=== PATIENT | female | born 1955 | race Caucasian/White ===

== ENCOUNTER 2017-12-08 02:53 | Outpatient (CLI) | payer BC, SELFPAY ==
--- NOTE | 2017-12-08 17:42 | PFT_ITS ---
DATE OF SERVICE: December 08, 2017 REQUESTING PROVIDER: Geetha Bonilla M.D. Spirometry shows borderline mild obstructive airways disease with no significant bronchodilator response. This may represent a normal variant. Lung volumes show no evidence of restriction. Diffusion capacity normal. Airways resistance normal. IMPRESSION: Borderline mild obstructive airways disease with no significant bronchodilator response. This may represent a normal variant. Clinical correlation recommended. When this study was compared to previous ones from 05/07/05, 03/08/08, and , the patient has a total of 220 cc's drop in FVC and 390 cc's drop in FEV1. Spirometry was largely stable up until 2009 and there is a slight decline in both measurements from 2009 to now. Clinical correlation recommended. Please see scanned document for data. SEE SCANNED DOCUMENT IN THE EMR FOR DATA AND GRAPHS
== END 2017-12-08 03:13 ==
PROVIDERS: PCP Nurse Practitioner; Visit Provider Internal Medicine Pulmonary Disease
DX: J45.909 Unspecified asthma, uncomplicated (principal)
CPT/HCPCS: 94060; 94150; 94726; 94729

== ENCOUNTER 2017-12-08 14:47 | Outpatient (CLI) | payer BC, SELFPAY ==
[2017-12-08] MEDS: Inhaler, Assist Device 1 EACH MC (16:48)
[2017-12-08] MEDS: Albuterol HFA 18 GM 200 PUFF INH IH (16:48)
== END 2017-12-08 15:07 ==
PROVIDERS: PCP Nurse Practitioner; Visit Provider Internal Medicine Pulmonary Disease
DX: J45.909 Unspecified asthma, uncomplicated (principal)

== ENCOUNTER 2017-12-10 00:54 | Outpatient (CLI) | payer BC, SELFPAY ==
--- NOTE | 2017-12-10 15:16 | DI.CT_ITS ---
SYMPTOMS/DIAGNOSIS: ASTHMA, J45.909, PERSISTENT COUGH AND LLL LATE INSPIRATORY S[place] CT SCAN OF THE CHEST: High resolution CT scan of the chest and noncontrast CT scan of the chest was performed. Comparison is 02/05/16. Comparison chest x-ray is 07/29/17. On the routine CT scan of the chest, there are multi-focal infiltrates present including areas in the right upper lobe, left lingula and both the right and left lower lobes. These do not appear to have been present on the chest x-ray from 07/29/17. There is mild atherosclerosis of the thoracic aorta but no aneurysmal dilatation is seen. The heart size is within normal limits. No significant pericardial effusion is seen. There are a few small subcentimeter lymph nodes seen in the mediastinum. No significant axillary adenopathy is present. No pleural effusion or pneumothorax is identified. The upper abdominal images show no acute abnormality. High resolution CT scan shows no significant bronchiectatic changes. There are areas of ground glass opacity which may represent air trapping. Infectious or inflammatory process can not be excluded. The tracheobronchial tree is unremarkable. IMPRESSION: Multi-focal air space opacities. The findings raise the question of multi-focal inflammatory or infectious process. Multi-focal pneumonia should be considered. Please correlate clinically.
== END 2017-12-10 01:14 ==
PROVIDERS: PCP Nurse Practitioner
DX: R05 Cough (principal); J98.4 Other disorders of lung; R91.8 Other nonspecific abnormal finding of lung field; J45.909 Unspecified asthma, uncomplicated
CPT/HCPCS: 71250

== ENCOUNTER 2017-12-12 09:20 | Outpatient (CLI) | payer BC, SELFPAY ==
[2017-12-12 09:40] LABS: HCT 36.4 % (36.0-46.0); HGB 11.8 g/dL (12.0-15.5); Mean Corp. HGB Concentration 32.4 g/dL (32.0-36.0); Mean Corpuscular Hemoglobin 30.6 pg (27.0-33.0); Mean Corpuscular Volume 94.3 fL (80-95); Mean Platelet Volume 10.2 fL (8.0-11.0); Platelet Count 291 x1000/uL (130-400); RBC 3.86 m/cumm (4.00-5.20); RBC Distribution Width 13.5 % (11.7-14.6); White Blood Cell Count 6.66 k/cumm (4.4-10.8)
[2017-12-12 09:57] LABS: INR 1.1 (1.0-3.5); Prothrombin Time 10.3 sec (9.3-10.8)
[2017-12-12 16:30] LABS: Abs Immature Grans 0.01 k/cumm (0.0-0.09); Absolute Basophil Count 0.05 k/cumm (0.0-0.2); Absolute Eosinophil Count 0.13 k/cumm (0.0-0.7); Absolute Lymphocyte Count 1.58 k/cumm (1.2-3.4); Absolute Monocyte Count 0.61 k/cumm (0.11-0.7); Absolute Neutrophil Count 4.13 k/cumm (1.2-6.7); Basophils % 0.8; Immature Grans % 0.2; Lymphocytes % 24.3; Monocytes % 9.4; Neutrophils % 63.3
== END 2017-12-12 09:40 ==
PROVIDERS: PCP Nurse Practitioner; Visit Provider Internal Medicine
DX: J98.4 Other disorders of lung; R05 Cough; R91.8 Other nonspecific abnormal finding of lung field; R06.09 Other forms of dyspnea
CPT/HCPCS: 36415; 85027; 85007; 85610

== ENCOUNTER 2017-12-12 09:25 | Outpatient (CLI) | payer BC, SELFPAY | END 2017-12-12 09:45 | PROVIDERS: PCP Nurse Practitioner; Visit Provider Internal Medicine | DX: R93.89 Abnormal findings on diagnostic imaging of other specified body structures (principal) ==

== ENCOUNTER 2017-12-12 09:43 | Outpatient (CLI) | payer BC, SELFPAY | END 2017-12-12 10:03 | PROVIDERS: PCP Nurse Practitioner; Visit Provider Internal Medicine | DX: R93.89 Abnormal findings on diagnostic imaging of other specified body structures (principal); Z13.6 Encounter for screening for cardiovascular disorders | CPT/HCPCS: 93005; 93010 ==

== ENCOUNTER 2018-02-24 01:55 | Outpatient (CLI) | payer BC, SELFPAY ==
--- NOTE | 2018-02-24 14:48 | DI.CT_ITS ---
SYMPTOM/DIAGNOSIS: F/U ABNL CHEST XR, R93.[address]: Comparison is made with the prior CT examination of 12/10/17. The examination was carried out without contrast enhancement. There is significant interval clearing of the lungs when compared with the prior study with only small regions of residual air space density noted bilaterally. The findings are certainly consistent with a resolving acute pneumonitis. There is no apparent mass. There is no pleural effusion. The cardiovascular structures appear intact on this noncontrast enhanced study. SUMMARY: Significant interval improvement with substantial clearing of the densities noted on the previous examination. Follow up evaluation of this patient with additional CT examinations could be considered if there is any further clinical question.
== END 2018-02-24 02:15 ==
PROVIDERS: PCP Nurse Practitioner; Visit Provider Internal Medicine
DX: R93.89 Abnormal findings on diagnostic imaging of other specified body structures (principal); J18.9 Pneumonia, unspecified organism
CPT/HCPCS: 71250

== ENCOUNTER 2018-06-10 03:39 | Outpatient (CLI) | payer BC, SELFPAY ==
--- NOTE | 2018-06-10 15:15 | DI.CT_ITS ---
SYMPTOM/DIAGNOSIS: R93.89, ABNL FINDINGS ON XRAY, SARCOIDOSIS CHEST CT: The study was carried out without contrast enhancement. There are regions of increased density in the lower lobes bilaterally and in the lingula and right middle lobe. A nodular density is noted adjacent to the pleural surface posteriorly in the right lower lobe and measures approximately 11 mm. in diameter. No other focal area of nodularity or evidence of a mass is seen. There is on this noncontrast enhanced examination, no evidence of adenopathy. There is no pleural effusion. The heart is not enlarged. There is no pericardial effusion. SUMMARY: When compared with the previous examination of 02/24/18, interval deterioration is demonstrated with note made of regions of atelectasis and/or infiltration in the lungs. There is a posterior pleural based area of nodularity in the right lower lobe measuring up to 11 mm. in diameter. The findings today could be on the basis of an acute pneumonitis. Follow up evaluation with a repeat chest CT when clinically appropriate or in 6-8 weeks is suggested for further review.
== END 2018-06-10 03:59 ==
PROVIDERS: PCP Nurse Practitioner; Visit Provider Internal Medicine
DX: R91.8 Other nonspecific abnormal finding of lung field (principal); R91.1 Solitary pulmonary nodule; D86.9 Sarcoidosis, unspecified
CPT/HCPCS: 71250

== ENCOUNTER 2018-06-23 00:27 | Outpatient (CLI) | payer BC, SELFPAY ==
--- NOTE | 2018-06-23 11:30 | DI.MAMMO_ITS ---
SYMPTOMS/DIAGNOSIS: SCREENING, Z12.31 MAMMOGRAMS: Mammograms were interpreted according to the usual protocol including computer analysis with CAD system, tomosynthesis and C view imaging. The breast tissue is of moderate radiodensity. There is no evidence of a mass. There are no suspicious calcifications and there has been no significant interval change when compared with prior images. SUMMARY: No evidence of malignancy, category 1. Yearly screening mammography is recommended. Breast density category B. SA ASSESSMENT OF FINDINGS: Negative. Category 1. Patient will receive a letter notifying them of these results. BI-RADS category B. There are scattered areas of fibroglandular density.
== END 2018-06-23 00:47 ==
PROVIDERS: PCP Nurse Practitioner; Visit Provider Nurse Practitioner
DX: Z12.31 Encounter for screening mammogram for malignant neoplasm of breast (principal)
CPT/HCPCS: 77063; 77067

== ENCOUNTER 2018-08-27 09:50 | Outpatient (CLI) | payer BC, SELFPAY ==
--- NOTE | 2018-08-27 09:47 | DI.RAD_ITS ---
SYMPTOM/DIAGNOSIS: RIGHT HIP PAIN RIGHT HIP: No bony or joint abnormality involving the right hip is demonstrated.
== END 2018-08-27 10:10 ==
PROVIDERS: PCP Nurse Practitioner; Visit Provider Physician Assistant
DX: M25.551 Pain in right hip (principal)
CPT/HCPCS: 73502

== ENCOUNTER 2018-09-01 01:22 | Outpatient (CLI) | payer BC, SELFPAY ==
--- NOTE | 2018-09-01 13:00 | DI.CT_ITS ---
SYMPTOMS/DIAGNOSIS: SARCOIDOSIS, D86.[address]: Comparison is made with June,. No enlarged hilar or mediastinal lymph nodes are seen. There are no pleural or pericardial effusions. There has been interval clearing of previously noted bilateral upper and lower lobe infiltrates. A nodular density seen at the left lung base is no longer present. There is minimal linear basilar scarring or atelectasis. IMPRESSION: Interval resolution of bilateral pulmonary infiltrates and area of nodularity in the left lung base.
== END 2018-09-01 01:42 ==
PROVIDERS: PCP Nurse Practitioner; Visit Provider Internal Medicine
DX: D86.9 Sarcoidosis, unspecified (principal); R91.8 Other nonspecific abnormal finding of lung field
CPT/HCPCS: 71250

== ENCOUNTER 2019-01-01 07:34 | Outpatient (CLI) | payer BC, SELFPAY ==
[2019-01-01 08:30] LABS: Abs Immature Grans 0.01 k/cumm (0.0-0.09); Absolute Basophil Count 0.03 k/cumm (0.0-0.2); Absolute Eosinophil Count 0.11 k/cumm (0.0-0.7); Absolute Lymphocyte Count 1.65 k/cumm (1.2-3.4); Absolute Monocyte Count 0.76 k/cumm (0.11-0.7); Absolute Neutrophil Count 4.08 k/cumm (1.2-6.7); Basophils % 0.5; Eosinophils % 1.7; HCT 36.7 % (36.0-46.0); HGB 12.2 g/dL (12.0-15.5); Immature Grans % 0.2; Lymphocytes % 24.8; Mean Corp. HGB Concentration 33.2 g/dL (32.0-36.0); Mean Corpuscular Hemoglobin 30.3 pg (27.0-33.0); Mean Corpuscular Volume 91.3 fL (80-95); Mean Platelet Volume 9.4 fL (8.0-11.0); Monocytes % 11.4; Neutrophils % 61.4; Platelet Count 318 x1000/uL (130-400); RBC 4.02 m/cumm (4.00-5.20); RBC Distribution Width 12.6 % (11.7-14.6); White Blood Cell Count 6.64 k/cumm (4.4-10.8)
[2019-01-01 09:07] LABS: Calculated LDL 83 mg/dL; Cholesterol 148 mg/dL (50-200); HDL Cholesterol 53 mg/dL (40-60); Triglyceride 60 mg/dL (30-150)
[2019-01-01 09:16] LABS: ALT 64 U/L (14-59); AST 46 U/L (15-37); Albumin 3.7 g/dL (3.4-5.0); Alkaline Phosphatase 429 U/L (46-116); Anion Gap 6.7 mmol/L (3-11); BUN 14 mg/dL (7-18); CO2 30.3 mmol/L (21.0-32.0); CREATININE 0.94 mg/dL (0.55-1.02); Calcium 9.4 mg/dL (8.5-10.1); Chloride 97 mmol/L (98-107); Glucose 91 mg/dL (70-100); Potassium 4.3 mmol/L (3.5-5.1); Sodium 134 mmol/L (136-145); Total Protein 6.6 g/dL (6.4-8.2)
[2019-01-01 09:31] LABS: Bilirubin, Total 0.6 mg/dL (0.2-1.0)
[2019-01-02 15:35] LABS: Lamotrigine 3.3 mcg/mL (2.5 - 15.0)
== END 2019-01-01 07:54 ==
PROVIDERS: PCP Nurse Practitioner; Visit Provider Nurse Practitioner Adult Health
DX: G40.109 Localization-related (focal) (partial) symptomatic epilepsy and epileptic syndromes with simple partial seizures, not intractable, without status epilepticus (principal); I10 Essential (primary) hypertension; Z79.899 Other long term (current) drug therapy; Z51.81 Encounter for therapeutic drug level monitoring; E78.5 Hyperlipidemia, unspecified; D86.9 Sarcoidosis, unspecified; J45.909 Unspecified asthma, uncomplicated
CPT/HCPCS: 36415; 80053; 80061; 80175; 85025

== ENCOUNTER 2019-02-01 02:20 | Outpatient (CLI) | payer BC, SELFPAY ==
--- NOTE | 2019-02-01 06:38 | DI.US_ITS ---
EXAM: US ABDOMEN CLINICAL HISTORY: elevated LFT, history of gallbladder stones/sludge, R94.5 TECHNIQUE: Ultrasound abdomen performed using standard protocol. COMPARISON: ABDOMEN AND RENAL ULTRASOUND from 08/22/2017 FINDINGS: LIVER: Normal size and echogenicity. No focal liver lesions are seen. GALLBLADDER: Multiple tiny gallstones versus sludge are again demonstrated in the gallbladder. No ev idence of wall thickening. No pericholecystic fluid identified. KIDNEYS: Kidneys are symmetric in size. No evidence of renal calculi. No evidence of hydronephrosis. No renal mass or cyst identified. BILIARY SYSTEM: No intrahepatic or extrahepatic biliary ductal dilation. PARADA'S SIGN: Negative. PANCREAS: Normal where visualized. SPLEEN: Not enlarged. ABDOMINAL AORTA AND IVC: Visualized portions normal caliber. ASCITES: None seen. IMPRESSION: No change in appearance of tiny stones versus sludge. No evidence of biliary dilatation or acute cho lecystitis..
== END 2019-02-01 02:40 ==
PROVIDERS: PCP Nurse Practitioner; Visit Provider Nurse Practitioner
DX: R94.5 Abnormal results of liver function studies (principal); R74.8 Abnormal levels of other serum enzymes; K83.8 Other specified diseases of biliary tract
CPT/HCPCS: 76700

== ENCOUNTER 2019-02-03 00:49 | Outpatient (CLI) | payer BC, SELFPAY ==
[2019-02-03 11:34] LABS: PTT Activated 28.1 sec (21.0-31.4); Prothrombin Time 10.4 sec (9.3-11.0)
[2019-02-03 11:41] LABS: ALT 36 U/L (14-59); AST 29 U/L (15-37); Albumin 3.9 g/dL (3.4-5.0); Alkaline Phosphatase 199 U/L (46-116); Bilirubin, Direct 0.11 mg/dL (0.00-0.20); Bilirubin, Total 0.5 mg/dL (0.2-1.0); Total Protein 6.5 g/dL (6.4-8.2)
[2019-02-03 11:53] LABS: GGT 118 U/L (5-55)
== END 2019-02-03 01:09 ==
PROVIDERS: PCP Nurse Practitioner; Visit Provider Nurse Practitioner
DX: R94.5 Abnormal results of liver function studies (principal); E78.5 Hyperlipidemia, unspecified; R74.8 Abnormal levels of other serum enzymes; D86.9 Sarcoidosis, unspecified; I10 Essential (primary) hypertension
CPT/HCPCS: 80076; 82977; 85610; 85730

== ENCOUNTER 2020-02-17 04:47 | Outpatient (CLI) | payer BC, SELFPAY ==
[2020-02-19 10:03] LABS: COVID-19 RT-PCR Result NEGATIVE (Negative)
== END 2020-02-17 05:07 ==
PROVIDERS: PCP Nurse Practitioner; Visit Provider Nurse Practitioner
DX: Z20.828 Contact with and (suspected) exposure to other viral communicable diseases (principal)
CPT/HCPCS: U0003

== ENCOUNTER 2020-05-30 03:47 | Outpatient (CLI) | payer BC, SELFPAY ==
[2020-05-30 08:53] LABS: ALT 38 U/L (14-59); AST 26 U/L (15-37); Alkaline Phosphatase 127 U/L (46-116); Bilirubin, Total 0.5 mg/dL (0.2-1.0); Calculated LDL 99 mg/dL (<100); Cholesterol 179 mg/dL (<200); GGT 76 U/L (5-55); HDL Cholesterol 66 mg/dL (40-60); Triglyceride 70 mg/dL (<150)
[2020-05-30 09:08] LABS: Bilirubin, Direct 0.2 mg/dL (0.0-0.2)
== END 2020-05-30 03:48 | disposition home or self-care (01) ==
LOC: LBO 03:47
PROVIDERS: PCP Nurse Practitioner; Visit Provider Nurse Practitioner
DX: R74.8 Abnormal levels of other serum enzymes (principal); R94.5 Abnormal results of liver function studies; Z13.220 Encounter for screening for lipoid disorders
CPT/HCPCS: 36415; 80061; 80076; 82977

== ENCOUNTER 2020-06-26 01:56 | Outpatient (CLI) | payer BC, SELFPAY ==
--- NOTE | 2020-06-26 06:45 | DI.MAMMO_ITS ---
EXAM: MG MAMMO SCREENING CLINICAL HISTORY: screening,Z12.39. TECHNIQUE: Bilateral full field digital CC and MLO mammographic images were obtained with 3D tomosyn thesis and utilizing computer aided detection (CAD). COMPARISON: Prior mammograms dating back to 2012, the most recent being June 2018. FINDINGS: No new significant radiograph findings in left breast. In the right breast there is an area of asymmetric density towards the upper outer quadrant located 8 cm in from the nipple and measuring approximately a 10 x 8 millimeters. This appears somewhat less well-defined than on previous studies. Spot compression view and ultrasound recommended. More poste riorly there is a benign-appearing lymph node in the right breast which is unchanged. There are no malignant-appearing microcalcification groups in this region or elsewhere in either [address]. There is no significant architectural distortion nor skin thickening-retraction. IMPRESSION: No radiographic evidence of malignancy in left breast. Right breast findings described above. Spot compression view and ultrasound recommended BI-RADS Category 0 - Assessment Incomplete: Need additional imaging evaluation Breast Density - Category B - Scattered areas of fibroglandular density Breast density Category C or D implies that the patient has dense breast tissue. Dense breast tissue can make it harder to find cancer on a mammogram. Dense breast tissue is also associated with an incr eased risk of breast cancer. This information about the result of the mammogram report was provided to the patient to raise their awareness. Use this report when you speak with the patient about their risks for breast cancer, which includes their family history. At that time, you may recommend additional screening tests (Ultrasoun d or MRI) as these tests may add significant information. A negative radiographic report should not delay biopsy if a dominant or clinically suspicious mass is present. Up to ten percent of cancers are not identified on mammography. A negative report may reinforce clinical impression. Adenosis and dense breasts may obscure an underlying neoplasm. False positive reports average 6 to 10%. Patient will receive a letter notifying them of these results.
== END 2020-06-26 02:16 ==
PROVIDERS: PCP Nurse Practitioner; Visit Provider Nurse Practitioner
DX: Z12.31 Encounter for screening mammogram for malignant neoplasm of breast (principal); R92.8 Other abnormal and inconclusive findings on diagnostic imaging of breast
CPT/HCPCS: 77063; 77067

== ENCOUNTER 2020-06-29 02:05 | Outpatient (CLI) | payer BC, SELFPAY ==
--- NOTE | 2020-06-29 | DI.MAMMO_ITS ---
EXAM: MG MAMMO SCREEN CALL BACK UNI CLINICAL HISTORY: F/U ABNL MAMMO, ASYMMETRIC DENSITY RT. TECHNIQUE: Unilateral spot mammographic images were obtained with 3D tomosynthesis and utilizing [employer] puter aided detection (CAD). . Breast Ultrasound was also performed. COMPARISON: Prior mammograms were reviewed. This additional imaging was performed due to findings described on the recent screening mammogram of 06/26/2020. FINDINGS: Additional mammographic views performed today do not dissipate this finding. However, renders this f inding more similar in appearance to prior mammograms. Ultrasound performed today following this mammogram reveals a 10 o'clock position finding which corre sponds to this mammogram finding.. This has benign appearance on ultrasound. Please see separate ultrasound report IMPRESSION: Benign-appearing findings as above. Please see separate ultrasound report. Appropriate follow-up is repeat right breast mammogram and ultrasound in 6 months.. Findings and recommendations were discussed by myself with the patient today. BI-RADS Category 3 - 6 month - Probably Benign Finding: Recommend follow-up mammography in 6 months Breast Density - Category B - Scattered areas of fibroglandular density Breast density Category C or D implies that the patient has dense breast tissue. Dense breast tissue can make it harder to find cancer on a mammogram. Dense breast tissue is also associated with an incr eased risk of breast cancer. This information about the result of the mammogram report was provided to the patient to raise their awareness. Use this report when you speak with the patient about their risks for breast cancer, which includes their family history. At that time, you may recommend additional screening tests (Ultrasoun d or MRI) as these tests may add significant information. A negative radiographic report should not delay biopsy if a dominant or clinically suspicious mass is present. Up to ten percent of cancers are not identified on mammography. A negative report may reinforce clinical impression. Adenosis and dense breasts may obscure an underlying neoplasm. False positive reports average 6 to 10%. Patient will receive a letter notifying them of these results.
--- NOTE | 2020-06-29 | DI.US_ITS ---
EXAM: US BREAST RT COMPLETE CLINICAL HISTORY: F/U ABNL MAMMO AND SPOT, RT ASYMMETRIC DENSITY. TECHNIQUE: Complete ultrasound of the right breast was performed incluing all 4 quadrants, the retro areolar region, and the ipsilateral axilla. COMPARISON: Today's diagnostic mammogram as well as prior mammograms reviewed FINDINGS: There is a solitary finding which is at the 10 o'clock position. This corresponds to the finding on the mammogram. It is a well-defined wider than taller 9 x 4 millimeter nodule with neutral and sligh tly increased through transmission. No worrisome decreased through transmission. Possibly lymph nod e versus fibrocystic nodule. There are no other focal findings in all 4 quadrants nor in the immediate retroareolar region. Benig n-appearing lymph nodes are noted in the ipsilateral axilla. IMPRESSION: Benign-appearing 10 o'clock position 9 x 4 millimeter nodule which corresponds to the finding on the mammogram. Appropriate follow-up is repeat right breast mammogram and ultrasound in 6 months. Findings and recommendations were discussed by myself with the patient today. BI-RADS Category 3 - 6 month - Probably Benign Finding: Recommend follow-up mammography in 6 months Breast Density - Category B - Scattered areas of fibroglandular density Breast density Category C or D implies that the patient has dense breast tissue. Dense breast tissue can make it harder to find cancer on a mammogram. Dense breast tissue is also associated with an incr eased risk of breast cancer. This information about the result of the mammogram report was provided to the patient to raise their awareness. Use this report when you speak with the patient about their risks for breast cancer, which includes their family history. At that time, you may recommend additional screening tests (Ultrasoun d or MRI) as these tests may add significant information. A negative radiographic report should not delay biopsy if a dominant or clinically suspicious mass is present. Up to ten percent of cancers are not identified on mammography. A negative report may reinforce clinical impression. Adenosis and dense breasts may obscure an underlying neoplasm. False positive reports average 6 to 10%. Patient will receive a letter notifying them of these results.
== END 2020-06-29 02:25 ==
PROVIDERS: PCP Nurse Practitioner; Visit Provider Nurse Practitioner
DX: Z12.31 Encounter for screening mammogram for malignant neoplasm of breast (principal); R92.8 Other abnormal and inconclusive findings on diagnostic imaging of breast; N60.81 Other benign mammary dysplasias of right breast
CPT/HCPCS: 76642; 77063; 77067

== ENCOUNTER 2020-11-01 01:14 | Outpatient (CLI) | payer BC, SELFPAY ==
--- NOTE | 2020-11-01 08:14 | DI.RAD_ITS ---
Exam(s) XR KNEE LT 3V AP,LAT,SILVESTRE EXAM: XR KNEE LT 3V AP,LAT,SILVESTRE CLINICAL HISTORY: left knee pain, M25.562. TECHNIQUE: 2D digital imaging was performed. COMPARISON: CR KNEES BILAT AP STANDING LATS from 05/02/2015 FINDINGS: No evidence of acute fracture but there is significant medial subluxation of the femoral condyles rel ative to the tibial plateau, with approximately 1 cm offset. There is minimal if any significant mark rowing of the medial lateral compartments. There is severe advanced narrowing of the patellofemoral compartment. No evidence of tibial plateau nor femoral condyle fractures. IMPRESSION: Advanced degenerative narrowing of the patellofemoral compartment ([id number]) Medial subluxation of the femoral condyles relative to the tibial plateau. Mild degenerative changes in the medial lateral compartments. DATA REPOSITORY: RADIATION DOSE DELIVERED:
== END 2020-11-01 01:34 ==
PROVIDERS: PCP Nurse Practitioner; Visit Provider Nurse Practitioner Family
DX: M25.562 Pain in left knee (principal); M17.12 Unilateral primary osteoarthritis, left knee; S83.132A Medial subluxation of proximal end of tibia, left knee, initial encounter
CPT/HCPCS: 73562

== ENCOUNTER 2021-01-02 00:43 | Outpatient (CLI) | payer BC, SELFPAY ==
--- NOTE | 2021-01-02 07:15 | DI.MAMMO_ITS ---
Exam(s) MAMMO DIAGNOSTIC UNI EXAM: MAMMO DIAGNOSTIC UNI CLINICAL HISTORY: 6 mos f/u right,R92.8. COMPARISON: 2012 through 26 June 2020 TECHNIQUE: Craniocaudal and mediolateral oblique Full Field Digital Mammography views of the right b reast with Computer Aided Diagnosis followed by Tomosynthesis FINDINGS: Mammography/Tomosynthesis: Masses/Architectural Distortion: There has been no change in the area of nodularity in the upper oute r quadrant. No suspicious features.. Microcalcifications: No suspicious pleomorphic-type are seen. Skin Thickening/Nipple Retraction: None. IMPRESSION: 1. No evidence of malignancy is noted. 2. Unless there is more urgent need, follow-up screening mammography is recommended in 6 months. BI-RADS Category 2 - Benign Findings Breast Density - Category B - Scattered areas of fibroglandular density A negative radiographic report should not delay biopsy if a dominant or clinically suspicious mass is present. Up to ten percent of cancers are not identified on mammography. A negative report may reinforce clinical impression. Adenosis and dense breasts may obscure an underlying neoplasm. False positive reports average 6 to 10%. Patient will receive a letter notifying them of these results.
== END 2021-01-02 01:03 ==
PROVIDERS: PCP Nurse Practitioner; Visit Provider Nurse Practitioner
DX: Z12.31 Encounter for screening mammogram for malignant neoplasm of breast (principal); R92.8 Other abnormal and inconclusive findings on diagnostic imaging of breast; N64.89 Other specified disorders of breast
CPT/HCPCS: 77061; 77065; G0279

== ENCOUNTER 2021-02-16 09:23 | Outpatient (CLI) | payer BC, SELFPAY ==
--- NOTE | 2021-02-16 08:00 | DI.RAD_ITS ---
Exam(s) XR STANDING ALIGNMENT EXAM: XR STANDING ALIGNMENT CLINICAL HISTORY: L TKA planning. TECHNIQUE: 2D digital imaging was performed. COMPARISON: CR XR KNEE LT 3V AP,LAT,SILVESTRE from 11/01/2020 CR XR KNEE LT 3V AP,LAT,SILVESTRE from 11/01/2020 FINDINGS: BONES: The hips are well maintained. There are stable degenerative changes in the left knee with jostin nt space narrowing and periarticular spurring. The patient has a right total knee replacement. The ankles are well maintained. There is no significant leg length discrepancy. SOFT TISSUE: Normal. IMPRESSION: 1. Osteoarthritis of the left knee. 2. Right TKR. DATA REPOSITORY: RADIATION DOSE DELIVERED:
== END 2021-02-16 09:24 | disposition home or self-care (01) ==
LOC: DIORS 09:23
PROVIDERS: PCP Nurse Practitioner; Referring Provider Nurse Practitioner; Visit Provider Physician Assistant
DX: M17.12 Unilateral primary osteoarthritis, left knee (principal)
CPT/HCPCS: 77073

== ENCOUNTER 2021-02-26 03:13 | Outpatient (CLI) | payer BC, SELFPAY ==
[2021-02-26 09:12] LABS: HCT 36.9 % (36.0-46.0); HGB 11.8 g/dL (11.2-15.7); MCH 30.7 pg (27.0-33.0); MCV 96.1 fL (80-95); MPV 9.4 fL (8.0-11.0); Platelet Count 250 10^3/uL (130-400); RBC 3.84 10^6/uL (3.93-5.22); RDW 12.1 % (11.7-14.6); RDW-SD 42.7 fL; WBC 7.21 10^3/uL (4.4-10.8)
[2021-02-26 10:22] LABS: Anion Gap 6.5 mmol/L (3-11); BUN 31 mg/dL (7-18); CO2 30.5 mmol/L (21.0-32.0); Calcium 9.2 mg/dL (8.5-10.1); Chloride 100 mmol/L (98-107); Estimated GFR 55.64 (mL/min/1.73m2); Glucose 80 mg/dL (74-106); Potassium 4.5 mmol/L (3.5-5.1); Sodium 137 mmol/L (136-145)
[2021-02-26 10:32] LABS: Source Nasal/Nares
[2021-02-26 12:53] LABS: COVID-19 PCR Negative (Negative)
== END 2021-02-26 03:14 | disposition home or self-care (01) ==
LOC: LBO 03:14
PROVIDERS: PCP Nurse Practitioner; Visit Provider Student in an Organized Health Care Education/Training Program
DX: M25.562 Pain in left knee (principal); M17.12 Unilateral primary osteoarthritis, left knee; Z20.822 Contact with and (suspected) exposure to COVID-19; Z01.818 Encounter for other preprocedural examination; Z01.812 Encounter for preprocedural laboratory examination
CPT/HCPCS: 36415; 80048; 85027; 87635

== ENCOUNTER 2021-02-28 07:20 | Day surgery (SDC) | payer BC, SELFPAY ==
[2021-02-22 16:00] VITALS: BP 102/53; PULSE 70
[2021-02-28] VITALS (17 sets, daily range): BP systolic 78–138; BP diastolic 32–72; PULSE 59–77; RESP 13–16; TEMP 36–36.8; O2SAT 92–99; BMI 24.3
--- NOTE | 2021-02-28 07:30 | W.PM.DS.N ---
Documented by User: Sheila Doherty 02/28/21 07:42 DS: Diagnosis Discharge Diagnosis (1) Primary osteoarthritis of left knee: Status: Acute Discharge Plan Disposition Patient Disposition: HOME Condition: Good Discharge Details Reason For Visit: Left knee DJD Attending Provider: Tobias Williamson Primary Care Provider: Anan Shaffer Home Meds and New Rx's Prescriptions: New acetaminophen 500 mg tablet 1,000 mg PO Q8H PRN Qty: 90 RF: 0 aspirin 81 mg tablet,delayed release (DR/EC) 81 mg PO BID 30 Days Qty: 60 RF: 0 celecoxib [Celebrex] 200 mg capsule 200 mg PO BID Qty: 30 RF: 0 docusate sodium [Colace] 100 mg capsule 100 mg PO BID Qty: 30 RF: 0 pantoprazole 40 mg tablet,delayed release (DR/EC) 40 mg PO DAILY 30 Days Qty: 30 RF: 0 gabapentin 300 mg capsule 300 mg PO QHS Qty: 14 RF: 0 oxycodone 5 mg tablet 5 mg PO Q4H PRN (Reason: severe post-operative pain) Qty: 18 RF: 0 Continued albuterol sulfate [ProAir HFA] 90 mcg/actuation HFA aerosol inhaler 2 puff Inhalation Q4H PRN Qty: 54 RF: 3 fluticasone propionate [Flonase Allergy Relief] 50 mcg/actuation spray,suspension 2 spray NS DAILY Qty: 54.6 RF: 3 multivitamin [Daily Multi-Vitamin] 1 EACH tablet 1 ea PO DAILY RF: 0 calcium carbonate-vitamin D3 [Calcium 600 + D(3)] 1 EACH tablet 1 ea PO DAILY RF: 0 diphenhydramine HCl [Benadryl] 25 MG capsule 25 mg PO HS PRNQty: 90 RF: 3 fluoxetine 20 mg capsule 20 mg PO DAILY Qty: 90 RF: 3 fluticasone propion-salmeterol [Advair Diskus] 500-50 mcg/dose blister with device 1 inh Inhalation BID Qty: 3 RF: 3 losartan 50 mg tablet 50 mg PO DAILY Qty: 90 RF: 3 omeprazole 20 mg capsule,delayed release(DR/EC) 20 mg PO DAILY Qty: 90 RF: 3 lamotrigine 150 MG tablet 150 mg PO HS RF: 0 lamotrigine [Lamictal] 100 MG tablet 100 mg PO .QAM RF: 0 Discontinued naproxen sodium 220 mg capsule 220 mg PO Q8H PRNRF: 0 Discharge Instructions Additional Instructions: Total Knee Discharge Instructions Activity: The most important activity is to walk. You should try to take short walks a few times a day. It is important that when resting you work on keeping the knee straight. Avoid putting a pillow behind the knee as this will encourage flexion. Work on range of motion exercises as provided by Physical Therapy. If you have the [employer] bike coming, this will be your primary tool for exercise after the knee replacement. You should use it and follow the directions for the knee. Utilize the other exercises sparingly based on your symptoms. - Start outpatient physical therapy within 2 weeks. - You should wear the JONA hose on both legs for 2 weeks. You may remove these at night. You may also use any compression sock in place of the JONA hose. - Utilize [employer] to review exercises, see videos on exercises and obtain basic information pertaining to your surgery and your recovery. Dressing: Remove the Luiz wrap by 2 days after your surgery and put on the JONA stocking given to you from the hospital. Keep the surgical dressing (underneath the LUIZ wrap) in place for at least one week. After the first week it may be removed and replaced with light gauze and tape or nothing. The wound and dressing may get wet after 3 days but avoid soaking the dressing or otherwise it will need to be changed. Many people prefer covering the dressing with cling wrap (saran wrap) to minimize it from getting soaked. If it gets wet, just pat dry. If it starts to peel off then it will need to be changed. Medications: - You should take Tylenol and anti-inflammatory Celebrex as your primary pain control medications. If the Celebrex is too expensive or not covered, please call the office for another alternative (Advil/Ibuprofen or Naproxen/Aleve) - You have been prescribed a stronger pain medication Oxycodone for breakthrough pain, take as needed as prescribed. - You have also been prescribed a stomach acid reduction agent Pantoprozole to help reduce stomach acid and reflux. - You have been prescribed Gabapentin to take at night for restlessness and nerve pain. - You will be taking Aspirin 81mg twice a day for DVT prevention unless instructed otherwise. - If you have constipation you should take Colace (which has been prescribed) or Miralax (which you may purchase [id number]). It takes most people 3-4 days to have a bowel movement. Follow-up: 2 weeks If you have any acute concerns or questions, please do not hesitate to contact the office at [phone]. You may contact Dr. Williamson with any questions after hours through the hospital at [phone] or on his cell phone at [phone]. Equipment/Supplies: Walker Activity:: Activity as Tolerated Remove Dressings/Wound Care:: Do Not Remove Shower/Bathe:: Cover Diet:: As Tolerated Discharge Orders Discharge Orders: Discharge Order (Routine); Ordered 02/28/21 Ordered By: Tobias Williamson DS: Data Vitals/I&O Vitals and I&O: Intake & Output 02/27/21 02/27/21 02/28/21 11:59 23:59 11:59 Weight 70.307 kg 70.307 kg PFSH All Active Problems Insomnia (Chronic) Hypertension (Chronic) Asthma (Chronic) GERD (gastroesophageal reflux disease) (Chronic) Hyperlipidemia (Chronic) Seizure disorder (Chronic) a. 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 seizures are mostly visual or auditory in nature Depression (Chronic) Allergic rhinitis (Acute) Epigastric pain (Acute 08/13/17) Headache (Acute 01/17/12) Sarcoidosis (Acute) 02/27/18 [facility] Pulm 10/08/19 Acapella Cough Assist Device use several times a day. [place] Ganglion cyst of finger (Acute) drained by [facility] 11/17/18 Left middle finger RH Elevated LFTs (Acute) Elevated alkaline phosphatase level (Acute) Osteopenia (Acute) Low vitamin D level (Acute) Petechiae (Acute) Cough (Acute) SOB (shortness of breath) (Acute) Fatigue (Acute) Wheeze (Acute) Screening for cholesterol level (Acute) Trigger middle finger of right hand (Acute) Injection: 10/13/20 Primary osteoarthritis of left knee (Acute) Injected: 11/27/2020 Medical History Abnormally prolonged clotting time Per [facility] neuro note. see records History of gastroscopy Trochanteric bursitis, right hip Injected: 05/06/2017, 08/27/2018 Surgical History Artificial knee joint present (04/25/14) S/P Right TKA DOS: 04/25/14 Dr. Fitzgerald Colonoscopy - IV Sedation (10/09/16) Replacement of total knee joint (04/25/14) R knee Dr Fitzgerald S/P excision of ganglion cyst (03/2019) L [facility] Dr Collazo S/P hysterectomy (06/07/96) ovaries spared S/P right knee surgery (03/09/72) Status post shoulder surgery (05/15/06) right Family History Mother COPD (chronic obstructive pulmonary disease) smoker Hyperlipidemia Hypertension Mental illness in member of household Father , 72 Heart disease CKD (chronic kidney disease) stage V requiring chronic dialysis Stroke X2 Smoked 2 ppd Carotid stenosis Sister Mental illness in member of household Social History Smoking/Tobacco Use Status: Never Smoking risk assessment performed?: Yes Alcohol Intake: former Year quit: 2017 Drug use: Never Substance use type: does not use Household members: none Housing: house Number of Children: 0 Communication Needs: None current occupation: [employer] reading Pets and animals: Yes Pets and animals: cat(s) and horse(s) Current gender identity: female What type of physical activity do you participate in: walking Duration: 30-45 minutes/day Frequency: 5-6 times per week Seatbelt use: always 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 Documented by User: Tobias Williamson MD 02/28/21 13:20 Date of service: 02/28/21 Time of Service: 13:19 Discharge Plan Disposition Patient Disposition: HOME Condition: Good Discharge Details Reason For Visit: Left knee DJD Attending Provider: Tobias Williamson Primary Care Provider: Anna Shaffer Home Meds and New Rx's Prescriptions: New acetaminophen 500 mg tablet 1,000 mg PO Q8H PRN Qty: 90 RF: 0 aspirin 81 mg tablet,delayed release (DR/EC) 81 mg PO BID 30 Days Qty: 60 RF: 0 celecoxib [Celebrex] 200 mg capsule 200 mg PO BID Qty: 30 RF: 0 docusate sodium [Colace] 100 mg capsule 100 mg PO BID Qty: 30 RF: 0 pantoprazole 40 mg tablet,delayed release (DR/EC) 40 mg PO DAILY 30 Days Qty: 30 RF: 0 gabapentin 300 mg capsule 300 mg PO QHS Qty: 14 RF: 0 oxycodone 5 mg tablet 5 mg PO Q4H PRN (Reason: severe post-operative pain) Qty: 18 RF: 0 Continued albuterol sulfate [ProAir HFA] 90 mcg/actuation HFA aerosol inhaler 2 puff Inhalation Q4H PRN Qty: 54 RF: 3 fluticasone propionate [Flonase Allergy Relief] 50 mcg/actuation spray,suspension 2 spray NS DAILY Qty: 54.6 RF: 3 multivitamin [Daily Multi-Vitamin] 1 EACH tablet 1 ea PO DAILY RF: 0 calcium carbonate-vitamin D3 [Calcium 600 + D(3)] 1 EACH tablet 1 ea PO DAILY RF: 0 diphenhydramine HCl [Benadryl] 25 MG capsule 25 mg PO HS PRNQty: 90 RF: 3 fluoxetine 20 mg capsule 20 mg PO DAILY Qty: 90 RF: 3 fluticasone propion-salmeterol [Advair Diskus] 500-50 mcg/dose blister with device 1 inh Inhalation BID Qty: 3 RF: 3 losartan 50 mg tablet 50 mg PO DAILY Qty: 90 RF: 3 omeprazole 20 mg capsule,delayed release(DR/EC) 20 mg PO DAILY Qty: 90 RF: 3 lamotrigine 150 MG tablet 150 mg PO HS RF: 0 lamotrigine [Lamictal] 100 MG tablet 100 mg PO .QAM RF: 0 Discontinued naproxen sodium 220 mg capsule 220 mg PO Q8H PRNRF: 0 Discharge Instructions Additional Instructions: Total Knee Discharge Instructions Activity: The most important activity is to walk. You should try to take short walks a few times a day. It is important that when resting you work on keeping the knee straight. Avoid putting a pillow behind the knee as this will encourage flexion. Work on range of motion exercises as provided by Physical Therapy. If you have the [employer] bike coming, this will be your primary tool for exercise after the knee replacement. You should use it and follow the directions for the knee. Utilize the other exercises sparingly based on your symptoms. - Start outpatient physical therapy within 2 weeks. - You should wear the JONA hose on both legs for 2 weeks. You may remove these at night. You may also use any compression sock in place of the JONA hose. - Utilize [employer] to review exercises, see videos on exercises and obtain basic information pertaining to your surgery and your recovery. Dressing: Remove the Luiz wrap by 2 days after your surgery and put on the JONA stocking given to you from the hospital. Keep the surgical dressing (underneath the LUIZ wrap) in place for at least one week. After the first week it may be removed and replaced with light gauze and tape or nothing. The wound and dressing may get wet after 3 days but avoid soaking the dressing or otherwise it will need to be changed. Many people prefer covering the dressing with cling wrap (saran wrap) to minimize it from getting soaked. If it gets wet, just pat dry. If it starts to peel off then it will need to be changed. Medications: - You should take Tylenol and anti-inflammatory Celebrex as your primary pain control medications. If the Celebrex is too expensive or not covered, please call the office for another alternative (Advil/Ibuprofen or Naproxen/Aleve) - You have been prescribed a stronger pain medication Oxycodone for breakthrough pain, take as needed as prescribed. - You have also been prescribed a stomach acid reduction agent Pantoprozole to help reduce stomach acid and reflux. - You have been prescribed Gabapentin to take at night for restlessness and nerve pain. - You will be taking Aspirin 81mg twice a day for DVT prevention unless instructed otherwise. - If you have constipation you should take Colace (which has been prescribed) or Miralax (which you may purchase [id number]). It takes most people 3-4 days to have a bowel movement. Follow-up: 2 weeks If you have any acute concerns or questions, please do not hesitate to contact the office at [phone]. You may contact Dr. Williamson with any questions after hours through the hospital at [phone] or on his cell phone at [phone]. Equipment/Supplies: Walker Activity:: Activity as Tolerated Remove Dressings/Wound Care:: Do Not Remove Shower/Bathe:: Cover Diet:: As Tolerated Discharge Orders Discharge Orders: Discharge Order (Routine); Ordered 02/28/21 Ordered By: Tobias Williamson DS: Summary Time Spent with Patient providing and/or coordinating discharge services: Less than 30 minutes Status at Discharge Functional status at discharge: uses cane/walker Overall status at discharge: patient is progressing back to baseline Mental Status: mental status grossly normal Speech and Movement: speech and movement normal Mood: congruent mood Affect: normal affect Exam Psych Mental Status: mental status grossly normal Speech and Movement: speech and movement normal Mood: congruent mood Affect: normal affect PFSH All Active Problems Insomnia (Chronic) Hypertension (Chronic) Asthma (Chronic) GERD (gastroesophageal reflux disease) (Chronic) Hyperlipidemia (Chronic) Seizure disorder (Chronic) a. 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 seizures are mostly visual or auditory in nature Depression (Chronic) Allergic rhinitis (Acute) Epigastric pain (Acute 08/13/17) Headache (Acute 01/17/12) Sarcoidosis (Acute) 02/27/18 [facility] Pulm 10/08/19 Acapella Cough Assist Device use several times a day. [place] Ganglion cyst of finger (Acute) drained by [facility] 11/17/18 Left middle finger RH Elevated LFTs (Acute) Elevated alkaline phosphatase level (Acute) Osteopenia (Acute) Low vitamin D level (Acute) Petechiae (Acute) Cough (Acute) SOB (shortness of breath) (Acute) Fatigue (Acute) Wheeze (Acute) Screening for cholesterol level (Acute) Trigger middle finger of right hand (Acute) Injection: 10/13/20 Primary osteoarthritis of left knee (Acute) Injected: 11/27/2020 Medical History Abnormally prolonged clotting time Per [facility] neuro note. see records History of gastroscopy Trochanteric bursitis, right hip Injected: 05/06/2017, 08/27/2018 Surgical History Artificial knee joint present (04/25/14) S/P Right TKA DOS: 04/25/14 Dr. Fitzgerald Colonoscopy - IV Sedation (10/09/16) Replacement of total knee joint (04/25/14) R knee Dr Fitzgerald S/P excision of ganglion cyst (03/2019) [facility] Dr Collazo S/P hysterectomy (06/07/96) ovaries spared S/P right knee surgery (03/09/72) Status post shoulder surgery (05/15/06) right Family History Mother COPD (chronic obstructive pulmonary disease) smoker Hyperlipidemia Hypertension Mental illness in member of household Father , 72 Heart disease CKD (chronic kidney disease) stage V requiring chronic dialysis Stroke X2 Smoked 2 ppd Carotid stenosis Sister Mental illness in member of household Social History Smoking/Tobacco Use Status: Never Smoking risk assessment performed?: Yes Alcohol Intake: former Year quit: 2017 Drug use: Never Substance use type: does not use Household members: none Housing: house Number of Children: 0 Communication Needs: None current occupation: [employer] reading Pets and animals: Yes Pets and animals: cat(s) and horse(s) Current gender identity: female What type of physical activity do you participate in: walking Duration: 30-45 minutes/day Frequency: 5-6 times per week Seatbelt use: always 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
[2021-02-28] MEDS: Acetaminophen 500 MG TAB 1000 MG PO ×2 (08:22→16:58)
[2021-02-28] MEDS: Celecoxib 200 MG CAP 400 MG PO (08:22)
[2021-02-28] MEDS: Gabapentin 300 MG CAP PO (08:22)
--- NOTE | 2021-02-28 08:28 | ANES.PREOP_ITS ---
General Info Date of Service Date Performed: 02/28/21 Height: 5 ft 5 in Weight: 66.2 kg Body Mass Index (BMI): 24.3 Surgical Procedure: Operation Date: 02/28/21 10:10 Proposed Procedures Side Surgeon p (L) Knee Total Arthroplasty Left Tobias Williamson MD Meds Allergies and Home Medications Allergies Allergy/AdvReac Type Severity Reaction Status Date / Time divalproex sodium AdvReac Intermediate liver Verified 02/28/21 07:57 [From Depakote] inflamation topiramate [From Topamax] AdvReac Intermediate liver Verified 02/28/21 07:57 inflamation Beta-Blockers AdvReac Unknown due to Verified 02/28/21 07:57 (Beta-Adrenergic Bloc asthma Penicillins AdvReac Unknown Nausea Verified 02/28/21 07:57 Home Medication Medication Instructions Recorded calcium carbonate-vitamin D3 1 ea PO DAILY 06/30/12 [Calcium 600 + D(3)] multivitamin [Daily Multi-Vitamin] 1 ea PO DAILY 06/30/12 diphenhydramine HCl [Benadryl] 25 mg PO HS PRN #90 tab-cap 06/22/14 lamotrigine 150 mg PO HS 09/15/17 lamotrigine [Lamictal] 100 mg PO .QAM 09/15/17 fluoxetine 20 mg capsule 20 mg PO DAILY #90 cap 05/08/20 fluticasone 500 mcg-salmeterol 50 1 inh INHALATION BID #3 each 05/08/20 mcg/dose blistr powdr for inhalation losartan 50 mg tablet 50 mg PO DAILY #90 tab 05/08/20 omeprazole 20 mg capsule,delayed 20 mg PO DAILY #90 cap 05/08/20 release albuterol sulfate 90 mcg/actuation 2 puff INHALATION Q4H PRN #54 gm 05/15/20 aerosol inhaler fluticasone propionate 50 2 spray NS DAILY #54.6 gm 05/15/20 mcg/actuation nasal spray,suspension acetaminophen 1,000 mg PO Q8H PRN #90 tab 02/28/21 aspirin 81 mg PO BID 30 Days #60 tab 02/28/21 celecoxib [Celebrex] 200 mg PO BID #30 cap 02/28/21 docusate sodium [Colace] 100 mg PO BID #30 cap 02/28/21 gabapentin 300 mg PO QHS #14 cap 02/28/21 oxycodone 5 mg PO Q4H PRN #18 tab 02/28/21 pantoprazole 40 mg PO DAILY 30 Days #30 tab 02/28/21 Current Visit Medications: Current Medications Generic Name Dose Route Start Last Admin Trade Name Freq PRN Reason Stop Dose Admin Acetaminophen 1,000 mg 02/28/21 06:00 02/28/21 08:22 Acetaminophen 500 Mg Tab PO 1,000 mg PREOP CIERRA Administration Acetaminophen 1,000 mg 02/28/21 14:00 Acetaminophen 500 Mg Tab PO TID CIERRA Aspirin 81 mg 02/28/21 20:00 Aspirin E.C. 81 Mg Tabec PO BID CIERRA Celecoxib 400 mg 02/28/21 06:00 02/28/21 08:22 Celecoxib 200 Mg Cap PO 400 mg PREOP CIERRA Administration Celecoxib 200 mg 02/28/21 20:00 Celecoxib 200 Mg Cap PO BID CIERRA Docusate Sodium 100 mg 02/28/21 07:27 Docusate Sodium 100 Mg Cap PO BID PRN PRN Constipation Ephedrine Sulfate 0 mg 02/28/21 07:51 Ephedrine 50 Mg/Ml Vial IVP DIRECTED PRN Fentanyl 0 mcg 02/28/21 07:51 Fentanyl 100 Mcg/2 Ml Vial IVP DIRECTED PRN Gabapentin 300 mg 02/28/21 06:00 02/28/21 08:22 Gabapentin 300 Mg Cap PO 300 mg PREOP CIERRA Administration Gabapentin 300 mg 02/28/21 22:00 Gabapentin 300 Mg Cap PO HS CIERRA Hydromorphone HCl 0.5 mg 02/28/21 07:27 Hydromorphone 2 Mg/Ml Vial IVP Q2H PRN PRN Hydromorphone HCl 0 mg 02/28/21 07:51 Hydromorphone 2 Mg/Ml Vial IVP DIRECTED PRN Tranexamic Acid 1,000 mg/ 60 mls @ 360 mls/hr 02/28/21 06:00 Sodium Chloride IVPB PREOP CIERRA Tranexamic Acid 1,000 mg/ 60 mls @ 360 mls/hr 02/28/21 06:00 Sodium Chloride IVPB DIRECTED CIERRA Ringer's Solution 1,000 mls @ 80 mls/hr 02/28/21 06:00 IV 03/29/21 23:59 INFUSION CIERRA Cefazolin Sodium/Dextrose 2 gm in 50 mls @ 100 mls/hr 02/28/21 06:00 Ancef Duplex IVPB 02/28/21 16:00 PREOP CIERRA Cefazolin Sodium/Dextrose 1 gm in 50 mls @ 100 mls/hr 02/28/21 10:00 Ancef Duplex IVPB 03/01/21 02:29 Q8H [facility] IV Miscellaneous Supplies 1 each 02/28/21 06:00 Iv Access IV 03/29/21 23:59 DIRECTED CIERRA Naloxone HCl 0 mg 02/28/21 07:51 Naloxone 0.4 Mg/Ml Vial IVP PRN PRN Ondansetron HCl 4 mg 02/28/21 07:27 Ondansetron 4 Mg/2 Ml Vial IVP Q6H PRN PRN Nausea Oxycodone HCl 0 mg 02/28/21 07:27 Oxycodone 5 Mg Tab PO Q3H PRN PRN Pain Pantoprazole Sodium 40 mg 03/01/21 07:30 Pantoprazole 40 Mg Tabcr PO DAILY@0730 [facility] Polyethylene Glycol 17 gm 02/28/21 07:27 Polyethylene Glycol 3350 17 Gm Packet PO BID PRN PRN Constipation Sodium Chloride 0 ml 02/28/21 06:00 Normal Saline Flush 10 Ml Syr IV 03/29/21 23:59 PRN PRN Sodium Chloride 0 ml 02/28/21 06:00 Normal Saline 10 Ml Vial IJ 03/29/21 23:59 DIRECTED PRN Sterile Water 0 ml 02/28/21 06:00 Water,Injection,Sterile 10 Ml Vial IJ 03/29/21 23:59 DIRECTED PRN PFSH Active Problems Active Problems: Problem Status Onset Code Insomnia G47.00 Hypertension I10 Asthma J45.909 GERD (gastroesophageal reflux disease) K21.9 Hyperlipidemia E78.5 Seizure disorder G40.909 Depression F32.9 Allergic rhinitis J30.9 Epigastric pain 08/13/17 R10.13 Headache 01/17/12 R51 Sarcoidosis D86.9 Ganglion cyst of finger M67.449 Elevated LFTs R94.5 Elevated alkaline phosphatase level R74.8 Osteopenia M85.80 Low vitamin D level R79.89 Petechiae R23.3 Cough R05 SOB (shortness of breath) R06.02 Fatigue R53.83 Wheeze R06.2 Screening for cholesterol level Z13.220 Trigger middle finger of right hand M65.331 Primary osteoarthritis of left knee M17.12 Medical History Medical History Abnormally prolonged clotting time Per [facility] neuro note. see records History of gastroscopy Trochanteric bursitis, right hip Injected: 05/06/2017, 08/27/2018 Medical History Comments:: Fron Pre-op screening Pt. states last seizure was last month, and states it comes in the form of an aura, states she is aware of when they are happening, and is more of a visual hallucination but doesn't see anything, states its a weird sensation Surgical History Surgical History Artificial knee joint present (04/25/14) S/P Right TKA DOS: 04/25/14 Dr. Fitzgerald Colonoscopy - IV Sedation (10/09/16) Replacement of total knee joint (04/25/14) R knee Dr Fitzgerald S/P excision of ganglion cyst (03/2019) [facility] Dr Collazo S/P hysterectomy (06/07/96) ovaries spared S/P right knee surgery (03/09/72) Status post shoulder surgery (05/15/06) right Tobacco Smoking/Tobacco Use Status: Never Alcohol Alcohol Intake: former Year quit: 2018 Substance Use Substance use: Never Substance use type: does not use Vital Signs and Lab Results Vital Signs Most Recent Vital Signs in EMR: Most Recent Vital Signs Temp Pulse Resp BP Pulse Ox 36.6 C 62 16 121/61 99 02/28/21 08:08 02/28/21 08:08 02/28/21 08:08 02/28/21 08:08 02/28/21 08:08 Lab Results Blood Type / Crossmatch: No Data to Display Complete Blood Count: White Blood Count 7.21 10^3/uL (4.4-10.8) 02/26/21 09:08 02/26/21 Red Blood Count 3.84 10^6/uL (3.93-5.22) L 02/26/21 09:08 02/26/21 Hemoglobin 11.8 g/dL (11.2-15.7) 02/26/21 09:08 02/26/21 Hematocrit 36.9 % (36.0-46.0) 02/26/21 09:08 02/26/21 Platelet Count 250 10^3/uL (130-400) 02/26/21 09:08 02/26/21 Complete Metabolic Panel: Sodium Level 137 mmol/L (136-145) 02/26/21 09:08 02/26/21 Potassium Level 4.5 mmol/L (3.5-5.1) 02/26/21 09:08 02/26/21 Chloride Level 100 mmol/L (98-107) 02/26/21 09:08 02/26/21 Carbon Dioxide Level 30.5 mmol/L (21.0-32.0) 02/26/21 09:08 02/26/21 Blood Urea Nitrogen 31 mg/dL (7-18) H 02/26/21 09:08 02/26/21 Creatinine 1.0 mg/dL (0.55-1.02) 02/26/21 09:08 02/26/21 Estimated GFR/1.73 m2 55.64 (mL/min/1.73m2) 02/26/21 09:08 02/26/21 Calcium Level 9.2 mg/dL (8.5-10.1) 02/26/21 09:08 02/26/21 Glucose Level 80 mg/dL (74-106) 02/26/21 09:08 02/26/21 Liver Function Panel: No Data to Display Coagulation Panel: No Data to Display Cardiac Panel: No Data to Display Arterial Blood Gas: No Data to Display Venous Blood Gas: No Data to Display Pancreas Panel: No Data to Display Thyroid Panel: No Data to Display Infectious Disease: Coronavirus (COVID-19)(PCR) Negative (Negative) 02/26/21 09:38 02/26/21 Coronavirus 2019 Source Nasal/Nares 02/26/21 09:38 02/26/21 Blood Cultures: No Data to Display Toxicology Panel: No Data to Display Imaging and Studies Imaging and Studies Study information below may be from another EMR and interpreted by another provider. Please see original notes in EMR for more complete details. Pulmonary Function Summary: 12/2017: Spirometry shows borderline mild obstructive airways disease with no significant bronchodilator response. This may represent a normal variant. Lung volumes show no evidence of restriction. Diffusion capacity normal. Airways resistance normal. IMPRESSION: Borderline mild obstructive airways disease with no significant bronchodilator response. This may represent a normal variant. Clinical correlation recommended. When this study was compared to previous ones from 05/07/05, 03/08/08, and 01/31/10, the patient has a total of 220 cc's drop in FVC and 390 cc's drop in FEV1. Spirometry was largely stable up until 2009 and there is a slight decline in both measurements from 2010 to now. Anesthesia Assessment and Plan Anesthesia History Personal History: No History of Anesthesia Complications Family History: No Family History of Anesthesia Complications Exercise Tolerance Exercise Tolerance: Metabolic Equivalents>4 Pertinent Negatives Pertinent Negatives: No Major Cardiovascular Symptoms or Complaints and No Major Pulmonary Symptoms or Complaints Cardiac & Pulmonary Exam Cardiac Exam: Normal S1/S2 Heart Sounds Pulmonary Exam: Clear Bilateral Breath Sounds Implantable Cardiac Device Does patient have a Pacemaker or an ICD?: No Airway Exam Known Difficult Airway: No Mallampati Class: 1 Mouth Opening: Normal (> 3cm) Thyromental Distance: Greater than 3 cm Neck Range of Motion: Full ROM Neck Circumference: Normal Teeth Condition: Normal Dentition ASA Classification ASA Score: ASA 2 Emergency Case?: No NPO Status NPO Status: NPO Clears >2 hours, Solids >8 hours Anesthesia Plan Resuscitation Status: Full Code Anesthesia Technique: Spinal Anesthesia Airway Planned: Natural Airway Pain Management: Surgeon and patient request nerve block Monitors Used: Standard Monitors
[2021-02-28] MEDS: Lactated Ringers 1,000 ML 80 ML IV (08:30)
[2021-02-28] MEDS: ceFAZolin 2 GM/50 ML BAG IVPB (09:39)
[2021-02-28] MEDS: Bupivacaine 0.25% Pres-Free 30 ML VIAL (10:04)
[2021-02-28] MEDS: Ketorolac 30 MG/ML VIAL (10:04)
[2021-02-28] MEDS: Normal Saline 50 ML (10:04)
--- NOTE | 2021-02-28 10:07 | W.ANESNERVE ---
Nerve Block Single Injection Procedure Date and Time Date Performed: 02/28/21 Procedure Start: 09:27 Location Where Procedure Performed Procedure Location: Day Surgery Unit Reason Performed: Postoperative Analgesia Requesting Provider: Tobias Williamson Timeout Performed Timeout Performed: Yes Monitoring Used ECG, Blood Pressure, SpO2 and See EMR for corresponding vital signs Sterility Sterility: Hand Hygiene, Surgical Cap, Surgical Mask, Sterile Gloves, Eye Protection and Chlorhexidine Sedation Given During Procedure Sedation Given (Indicate Dose Given): Versed IV Dose:: 2mg Patient Mental Status Patient Mental Status: Sedate with meaningful communication Nerve Block 1st Nerve Block: Laterality: Left Block Type: Adductor Canal Needle / Catheter Used: 100mm SonoPlex II Local Anesthetic Bolus (Indicate Dose Given): Lidocaine used for local infiltration of skin, Injected in 3-5ml increments after negative blood aspiration and Bupivacaine 0.25% Dose:: 15mL Additives (Indicate Dose Given): None Ultrasound: Sterile probe cover and gel used Ultrasound Image Saved?: Yes Nerve Stimulator: Not Used Paresthesia: None Procedure Tolerated: No Complications Procedure Outcome: Successful Performed By: Yesica Cope
[2021-02-28] MEDS: oxyCODONE 5 MG TAB PO (12:25)
--- NOTE | 2021-02-28 13:35 | W.ANESPOSTOP ---
Postoperative Evaluation Date, Time and Location Date Performed: 02/28/21 Time Performed: 13:35 Patient Location: Day Surgery Unit Vital Signs Most Recent Imported Vital Signs: Most Recent Vital Signs Temp Pulse Resp BP Pulse Ox 36.4 C L 67 16 105/52 L 96 02/28/21 12:40 02/28/21 12:40 02/28/21 12:40 02/28/21 12:40 02/28/21 12:40 Pain Score Most Recent Pain Score: Most Recent Pain Score Pain Level [Left Knee] 8 02/28/21 12:23 Pain Level 5 02/28/21 12:40 Assessment Mental Status: Awake (Alert & Oriented to Patient Baseline) Airway and Respiratory Function: Patent airway with normal (patient baseline) respiratory exam Cardiovascular Function: Hemodynamically Stable Hydration Status: Adequately Hydrated Nausea & Vomiting: No Nausea or Vomiting Pain: Pain is tolerable per patient Peripheral Nerve Block: Regional nerve block not resolved at time of post operative discharge
[2021-02-28] MEDS: Albuterol/Ipratropium 3 ML UPD VIAL UPD (16:24)
--- NOTE | 2021-02-28 16:30 | PT.INIE ---
Date of service: 02/28/21 Time of Service: 16:30 PT Notes Visit Reasons: Left knee DJD Physical Therapy Day Surgery Initial Evaluation Date: 02/28/2021 Referring Doctor: MEHDI Manjarrez PT Orders: PT CONSULT: Status post Ortho surgery Precautions: WBAT on left LE with AD. Patient Profile/Admitting Diagnosis: Cheryl is a 65-year-old female with primary osteoarthritis of the left knee status post left PMHX: Medical History Depression Elevated alkaline phosphatase level History of gastroscopy Low vitamin D level Osteopenia Trigger middle finger of right hand Injection: 10/13/20 Trochanteric bursitis, right hip Injected: 05/06/2017, 08/27/2018 Surgical History Colonoscopy - IV Sedation (10/09/16) Replacement of total knee joint (04/25/14) R knee Dr Fitzgerald S/P excision of ganglion cyst (03/2019) [facility] Dr Collazo S/P hysterectomy (06/07/96) ovaries spared S/P right knee surgery (03/09/72) Status post shoulder surgery (05/15/06) right Social History/Home Situation: Lives alone in a private home with 4 steps to enter without rails. She states she has an alternate entrance where she has 8 steps with a rail on 1 side, however walkway is covered with snow. Equipment Owned/DME: Bilateral axillary crutches Subjective: Complained of dizziness in 2 separate occasions during attempts at mobility assessment by this PT. [place] considerably better during the third attempt with stair negotiation. Was seeing purple hair in two of the nurses during her first hypotensive episode and had delayed response to instructions during the second hypotensive episode. Objective: General Observation: IVETTE wraps to left LE. Cryocuff to left knee. JONA is on left leg. Mental Status: Alert and oriented to self, place, and time. However demonstrated acute confusion, impaired awareness of self and environment during those two separate occasions with PT when patient had hypotensive episodes. Pain: Reported some mild pain in the L knee on the third attempt that did not limit stair negotiation ROM: Right Lower Extremity: Hip flexion WFL. Hip abduction WFL. Knee flexion WFL. Ankle dorsiflexion WFL. Ankle plantarflexion WFL. Left Lower Extremity: Hip flexion WFL. Hip abduction WFL. Knee flexion 10 degrees to 100 degrees. Knee extension -10 degrees. Ankle dorsiflexion WFL. Ankle plantarflexion WFL. Strength: Right Lower Extremity: Hip flexors 5/5. Hip abductors 5/5. Knee flexors 5/5. Knee extensors 5/5. Ankle dorsiflexors 5/5. Ankle plantarflexors 5/5. Left Lower Extremity:Hip flexors 4/5. Hip abductors 5/5. Knee flexors 4/5. Knee extensors 3-/5. Knee extension 3 -/5. Ankle dorsiflexors 5/5. Ankle plantarflexors 5/5. Sensation: Intact as to pain and light pressure in bilateral lower extremities Bed Mobility/Transfers: Supine to sit contact-guard assist Sit to stand minimal assist during first attempt at standing as patient complained of sudden dizziness. Deferred further testing until after half an hour patient required contact guard assist. Stand to sit contact-guard assist Bed to chair contact-guard assist Gait: Instructed patient during of the second attempt at mobility assessment with level surface ambulation 50 feet using front wheeled walker requiring contact-guard assist and moderate verbal cueing for correct gait pattern. Stairs: Reported sudden onset dizziness with standing up from wheelchair after resting for 3 minutes in sitting. Deferred stair negotiation training due to second hypotensive episode. Required contact-guard assist to minimal assist on the steps on the third attempt after about 40 minutes with blood pressure stabilizing to 100/40 7 mmHg. Balance: Static Sitting: Normal Dynamic Sitting: Normal Static Standing: Fair Dynamic Standing: Fair Special Tests: Mobility Limitations Standardized Measure [facility] AM-PAC 6 clicks Basic Mobility Inpatient Short Form: Raw Score: 18 CMS Score: 47% deficit Informed Consent/Education: Patient instructed in purpose of PT consult. Assessment: Patient had hypotensive episodes in two separate attempts at completing PT evaluation with systolic blood pressure in the 70s during the first session and in the 80s during the second session. A third attempt was made for stairs training with blood pressure of 100/47 mmHg. During the first two visits, reports of dizziness were accompanied by acute confusion, some hallucination (patient was seeing purple hair ontwo nurses), and decreased awareness of her environment. During the third attempt, patient was able to complete steps but demonstrated some impairment with safety awareness requiring moderate verbal cueing. Recommendation of staying overnight was given to orthopedic surgeon and nursing staff as patient lives alone. Patient presents with clinical signs and symptoms consistent with current/admitting diagnoses that have resulted to mobility limitations, gait instability, generalized weakness, and impairment of motor control as demonstrated by the following impairment level findings: 1. Decreased strength to left knee major muscle groups 2. Impaired standing balance 3. Limitation of joint range of motion in left knee 4. Two episodes of hypotension and acute confusion Impairments are contributing to the following functional limitations: 1. Inability to safely ambulate without assistive device 2. Increase completion time for mobility ADL performance 3. Increased fall risk [place] is [place] 48574 moderate complexity complexity based on the following: History: 65-year-old female with impairment level findings, functional limitations, and past medical history as indicated above Examination: Demonstrable impairment in strength, balance, and mobility level with underlying impairments and functional limitations as documented above Presentation: Evolving Decision Makin moderate complexity Goals: N/A. PT evaluation and 1-2 treatment sessions only for functional mobility training using recommended AD and for HEP instruction. Plan of Care/Treatment Plan: N/A. PT evaluation and 1-2 treatment session only for functional mobility training using recommended AD and for HEP instruction. DISCHARGE RECOMMENDATIONS: [] Home with no services [] [] Home with services [specify] [] Home with outpatient PT [] [] SNF for continued rehabilitation [] [] Didactic Instructor Care [] [] SNF versus LTC based on ability to participate and progress [] [X] Other: Admit to medical surgical unit overnight for continued close monitoring of medical status, for initiation of left TKA rehab, and for functional mobility training. TREATMENT CODE/TIME: 03838 x 23 minutes, 07295 x 37 minutes beginning at 8:25 PM, 14:47 PM, and 16:30 PM. Thank you for the opportunity to participate in the care of this patient. Roxana Ortega PT, DPT, CLT [facility] [place], [place]
--- NOTE | 2021-02-28 18:38 | DSU.FORM ---
Patient was wheeled to her car. Patient friend asked if there was anything she should know to help the patient. Patient friend was informed that the patient would need help for the night. Shahla reported that the patient did not ask her to stay and that the patient was going home alone. This nurse told Shahla that the patient was told she should have some one stay with her tonight.
--- NOTE | 2021-02-28 20:39 | W.PM.OP ---
Date of service: 02/28/21 Time of Service: 10:52 Operative Note Operative Note DATE OF PROCEDURE: 02/28/21 PRE-OP DIAGNOSIS: Left Knee Osteoarthritis POST-OP DIAGNOSIS: same PROCEDURE: Left Total Knee Replacement SURGEON: Tobias Williamson WOOD MILLING MACHINE TENDER: Sheila Doherty ANESTHESIA TYPE: Spinal Refer to Anesthesia Record ESTIMATED BLOOD LOSS: 200 PATHOLOGY: none sent TOURNIQUET TIME: 0 COMPLICATIONS: None Patient was transported to: PACU Patient's condition: stable Implants: 1. Depuy Attune Cementless Cruciate Retaining Femoral Component, Size 6 2. Depuy Attune Cementless Rotating Platform Tibial Component, Size 5 3. Depuy Attune 6x5 CR/RP Poly 4. Depuy Attune Patellar Component, Size 35 Indications: I have seen Cheryl in clinic for symptoms of knee arthritis, confirmed with radiographic findings. She has exhausted nonoperative methods and was having significant limitations in daily function and desired better function and less pain. I discussed the technical details of a knee replacement. I explained the risks of the procedure to include, but not limited to, bleeding, infection, pain, stiffness, fracture, damage to nerves and vessels, damage to muscles and tendons, loosening, need for repeat procedure, blood clot and cardiopulmonary demise. Despite these risks, Cheryl elected to proceed. Findings: There was significant signs of arthritis throughout the knee especially involving the patellofemoral compartment. Procedure Description: Cheryl was greeted in the preoperative holding area where the correct side was identified and marked. The consent was reviewed with the patient and signed. The history and physical was updated. All questions were answered. Preoperative medications were administered: Acetaminophen 1000mg, Celebrex 400mg, and Gabapentin 300mg. An adductor canal block was then administered by the anesthesia team in the PACU. Cheryl was taken back to the operating room. A spinal anesthestic was then administered. The patient was placed into the supine position on the operating room table. A nonsterile tourniquet was placed high onto the leg but only used for cementing. Posts were placed for positioning during the procedure. All bony prominences were well padded. Prophylactic antibiotics in the form of Cefazolin were administered. 1g of Tranxemic Acid was given intravenously within 30 minutes of incision. The left leg was then prepped with Chloraprep and draped in a standard fashion with impervious stockinette. A second prep with Chloraprep was performed prior to application of Iodine impregnated skin protection. A timeout to confirm correct identity, side and site, procedure, allergies, anesthesia, and medical concerns was performed. With the knee in some flexion, a midline incision was made overlying the knee. Full thickness skin flaps were raised once the extensor mechanism was encountered. These were raised medially and laterally. Any bleeding was controlled with electrocautery. Once the extensor mechanism was fully exposed, a medial parapatellar arthrotomy was performed in a flexed position. All bleeding from the arthrotomy and the geniculate arteries was coagulated. A medial subperiosteal peel was performed with electrocautery to the midcoronal plane. The fat pad was removed while keeping the patellar tendon protected. The anterior distal femur synovium was removed for later visualization. The ACL and PCL were resected and the anterior horn of the lateral meniscus was transected. The knee was then flexed with the patella everted. Large osteophytes from the tibia were removed. Large osteophytes from the femur were removed. Using a step drill, and based on preoperative templating, the femoral canal was entered. This was done with a step drill without any difficulty. The intramedullary distal femoral cut guide was inserted, set to a 6 degree valgus cut and 8mm cut thickness. The distal femoral cut guide was then held in position and pinned. With the soft tissues protected, the distal cut was performed. This was passed over a few times to ensure a planar cut. I then turned attention to the tibia. The extramedullary guide was placed onto the leg. The distal aspect was slid medial to adjust for position of center of ankle and stay in line with shaft of the tibia. Approximately 3-5 degrees of posterior slope was kept in the proximal cutting guide. The center of the guide was aligned with the PCL. The stylus was used to assess cut thickness. The medial side, least invovled side, was set for a 6mm cut, which corresponded to 5mm laterally, measured from the lowest spots of the plateau. This was then held in position and pinned into place with 2 additional pins and a cross pin for stability. The medial and lateral collateral ligaments were protected and the cut was performed. With this completed, it was assessed and noted to be of appropriate dimensions. The guide was removed. A spacer block was inserted and the knee was brought into extension. The 5mm spacer block provided full extension, without hyperextension and with stability of both the medial and lateral collateral ligaments was assessed. The pins from the femur and the tibia were then removed. The distal femur was then sized. The anterior stylus was placed onto the lateral ridge of the anterior femur. This indicated a size 6 femur. The external rotation of the guide was adjusted to 0 degrees to match the epicondylar axis, perpendicular to Mignon?s line. The 4-in-1 cutting guide was the placed. The posterior medial femur cut was evaluated and appeared of good thickness. The spacer block was inserted underneath the cutting guide and stability was confirmed in 90 degrees of flexion. An dottie wing was used to confirm appropriate position of the anterior cut to avoid notching. This cutting guide was ensured to be flush on the cut surface and then pinned into place with headed pins. While protecting the soft tissues, quad tendon, and collateral ligaments, the anterior and posterior cuts were performed with a saw. The central two pins were removed and the posterior and anterior chamfers were cut next. The notch-cutting guide was placed. This was pinned to lateralize the femoral component as much as possible while keeping it flush on the cut surface. This was then pinned into position. A reciprocating saw was used to make the notch cut. A rasp smoothed the cut surfaces. The medial and lateral menisci were removed. A trial femoral component was then inserted, impacted down to the cut surfaces, and the lug holes were drilled. A provisional trial tibial component was placed and the knee was brought through range of motion. There was noted to be excellent extension and flexion. There was no significant instability. The patella was tracking without thumbs. A size 5mm polyethylene component provided the best range of motion and stability with less than 2mm gapping with medial and lateral stress and full extension without significant hyperextension. The tibial cut surface was fully exposed. The tibia was then sized as a 5. The tibia had been previously marked during trialing to correspond to the center of the tibial component to help with rotation. The trial was aligned to this arcelia, approximately rotated to the medial 1/3rd of the tibial tubercle. The trial was pinned into place. The tibia was prepared with a reamer and a keel punch and lug holes. The knee was then brought into extension and the patella was measured as 21mm. Using the patellar clamp and cut guide, this was resected to a flat surface with at least 13mm of thickness remaining. The size 35 patella fit the best. This was oriented and then clamped into position. The lugs were drilled. The trial components were removed. The final components were opened on the back table. The periosteal and capsular tissues, especially posteriorly, around the knee were then systematically injected with a periarticular cocktail consisting of 50cc 0.25% Marcaine, 30mg Ketorolac, 20cc of Exparal and 50cc of injectable saline. The knee was thoroughly irrigated with a pulse lavage and dried. Irrisept was also used to irrigate the tissues. On the back table, with the implants opened, the cement was mixed. One batch of high viscosity cement was prepared with vacuum assistance. After the cement was ready a small amount was placed on the cut surface of the patella and the patellar button was clamped into position and held. While the cement was hardening, the cementless knee components were placed. Starting with the tibial component, the tibia was subluxed anteriorly and the lug holes of the component were lined up. The tibia was then impacted with an impactor and mallet until the tibial component was in contact with the tibia. The final polyethylene component was inserted. Then, the femoral component was inserted. The lug holes were aligned and the component was impacted into position. The knee was irrigated with Irrisept chlorhexadine solution. This was allowed to sit in the knee for 3 minutes. After the cement had finally cured, approximately 15min, the clamp was removed from the patella and the knee was taken through range of motion. The patella was tracking with a no-thumbs technique. The capsule was then reapproximated with a No. 1 Vicryl at multiple locations. The capsule was finally closed with a No. 2 Stratafix, barbed suture. The second dosing of 1g TXA was started. Deep tissues were then reapproximated with 0 Vicryl and 2-0 Vicryl. The skin was closed with a running 3-0 Monocryl in a subcuticular fashion. This was reinforced with skin glue. A Mepilex silver dressing was applied along with a [id number] IVETTE wrap. A CryoCuff was applied. Cheryl was transferred to the hospital bed without difficulty an suffering no apparent complication. Cheryl has a good prognosis. Physical therapy will start today and without restrictions, weight-bearing as tolerated. Aspirin 81mg BID will be used for DVT prophylaxis.
== END 2021-02-28 17:50 | disposition home or self-care (01) ==
PROVIDERS: PCP Nurse Practitioner; Visit Provider Student in an Organized Health Care Education/Training Program
PROC: (CPT 27447; principal; 2021-02-28 10:00)
DX: M17.12 Unilateral primary osteoarthritis, left knee (principal); I10 Essential (primary) hypertension; K21.9 Gastro-esophageal reflux disease without esophagitis; E78.5 Hyperlipidemia, unspecified; G40.909 Epilepsy, unspecified, not intractable, without status epilepticus
CPT/HCPCS: 27447; 76942; 97162; 97530; J0690; J1885; J2250; J2370; J2405; J7620

== ENCOUNTER 2021-03-15 10:38 | Outpatient (CLI) | payer BC, SELFPAY ==
--- NOTE | 2021-03-15 09:45 | DI.RAD_ITS ---
Exam(s) XR KNEE LT 1V XR STANDING ALIGNMENT EXAM: XR STANDING ALIGNMENT and XR knee LT 1 V CLINICAL HISTORY: 1ST POST OP L TKA. TECHNIQUE: 2D digital imaging was performed. COMPARISON: CR XR STANDING ALIGNMENT from 02/16/2021 FINDINGS: BONES: No acute fracture is present. No bony destructive lesion is seen. The patient has bilateral to [place] knee replacements. There has been recent placement of the left total knee arthroplasty. No sign ificant leg length discrepancy is noted. SOFT TISSUE: Normal. IMPRESSION: Bilateral total knee arthroplasties. DATA REPOSITORY: RADIATION DOSE DELIVERED:
== END 2021-03-15 10:39 | disposition home or self-care (01) ==
LOC: DIORS 10:38
PROVIDERS: PCP Nurse Practitioner; Referring Provider Nurse Practitioner; Visit Provider Physician Assistant
DX: Z96.653 Presence of artificial knee joint, bilateral (principal); Z47.1 Aftercare following joint replacement surgery
CPT/HCPCS: 73560; 77073

== ENCOUNTER 2021-06-26 02:17 | Outpatient (CLI) | payer BC, SELFPAY ==
[2021-06-26 15:37] LABS: Abs Immature Grans 0.01 10^3/uL (0.0-0.06); Absolute Basophil Count 0.07 10^3/uL (0.0-0.2); Absolute Eosinophil Count 0.24 10^3/uL (0.0-0.7); Absolute Lymphocyte Count 2.52 10^3/uL (1.2-3.4); Absolute Monocyte Count 0.84 10^3/uL (0.1-0.8); Absolute Neutrophil Count 3.35 10^3/uL (1.2-6.7); Eosinophils % 3.4; HCT 35.7 % (36.0-46.0); HGB 11.3 g/dL (11.2-15.7); Immature Grans % 0.1; Lymphocytes % 35.8; MCH 29.7 pg (27.0-33.0); MCHC 31.7 % (32.0-36.0); MCV 94 fL (80-95); MPV 10.2 fL (8.0-11.0); Monocytes % 11.9; Neutrophils % 47.8; Platelet Count 286 10^3/uL (130-400); RBC 3.81 10^6/uL (3.93-5.22); RDW-SD 44.7 fL; WBC 7.03 10^3/uL (4.4-10.8)
== END 2021-06-26 02:18 | disposition home or self-care (01) ==
LOC: LBO 02:17
PROVIDERS: PCP Nurse Practitioner; Visit Provider Nurse Practitioner
DX: D64.9 Anemia, unspecified (principal); J45.909 Unspecified asthma, uncomplicated
CPT/HCPCS: 36415; 85025

== ENCOUNTER → 2021-10-03 01:45 | Outpatient (CLI) | payer MEDICARE, SELFPAY ==
--- NOTE | 2021-10-03 08:08 | DI.MAMMO_ITS ---
Exam(s) MAMMO SCREENING EXAM: MAMMO SCREENING CLINICAL HISTORY: screening, Z12.39 TECHNIQUE: Bilateral full field digital CC and MLO mammographic images were obtained with 3D tomosyn thesis and utilizing computer aided detection (CAD). COMPARISON: Available for comparison. FINDINGS: Masses/Architectural Distortion: There are stable nodules in the upper-outer quadrant of the right br east. No suspicious masses or areas of architectural distortion are seen. Microcalcifications: No suspicious pleomorphic-type are seen. Skin Thickening/Nipple Retraction: None. IMPRESSION: 1. No significant interval change with no specific features of malignancy noted. 2. Unless there is more urgent need, screening mammography is recommended, as per [place] [employer] guidelines. BI-RADS Category 2 - Benign Findings Breast Density - Category B - Scattered areas of fibroglandular density Breast density category C or D implies that the patient has dense breast tissue. Dense breast tissue is very common and is not abnormal but dense breast tissue can make it harder to find cancer on a ma mmogram. Also, dense breast tissue may increase their breast cancer risk. This information about the result of the mammogram report was provided to the patient to raise their awareness. Use this report when you speak with the patient about their risks for breast cancer, which includes their family hist ory. At that time, you may recommend for more screening tests (Ultrasound or MRI) as they might be us eful based on their risk. A negative radiographic report should not delay biopsy if a dominant or clinically suspicious mass is present. Up to ten percent of cancers are not identified on mammography. A negative report may reinforce clinical impression. Adenosis and dense breasts may obscure an underlying neoplasm. False positive reports average 6 to 10%. Patient will receive a letter notifying them of these results.
== END ==
PROVIDERS: PCP Nurse Practitioner; Visit Provider Nurse Practitioner
DX: Z12.31 Encounter for screening mammogram for malignant neoplasm of breast (principal); R92.8 Other abnormal and inconclusive findings on diagnostic imaging of breast
CPT/HCPCS: 77063; 77067

== ENCOUNTER → 2021-10-09 18:54 | Outpatient (CLI) | payer MEDICARE, SELFPAY ==
--- NOTE | 2021-10-09 13:45 | DI.RAD_ITS ---
Exam(s) XR CHEST 2V PA LATERAL EXAM: XR CHEST 2V PA LATERAL CLINICAL HISTORY: Chest congestion, wheezing, sarcoidosis, pneumonia, J18.9, D86.9, R09.89 TECHNIQUE: 2D digital imaging was performed of the chest. Two images were obtained. PA and lateral views were obtained. COMPARISON: CR CHEST 2 VIEWS PA,LAT from 07/29/2017 FINDINGS: MEDIASTINUM: Normal. HEART: Normal. PULMONARY VASCULATURE: Normal. LUNGS: Clear. PLEURAL SPACE: No pleural effusion or pneumothorax. BONE:Within normal limits for the patient's age. OTHER FINDINGS:Normal. IMPRESSION: No acute pulmonary findings. DATA REPOSITORY: RADIATION DOSE DELIVERED:
== END ==
PROVIDERS: PCP Nurse Practitioner; Visit Provider Physician Assistant Medical
DX: D86.9 Sarcoidosis, unspecified (principal); J18.9 Pneumonia, unspecified organism; R09.89 Other specified symptoms and signs involving the circulatory and respiratory systems; R06.2 Wheezing
CPT/HCPCS: 71046

== ENCOUNTER 2021-11-02 10:47 | Outpatient (CLI) | payer MEDICARE, SELFPAY ==
--- NOTE | 2021-11-02 10:30 | DI.RAD_ITS ---
Exam(s) XR KNEE LT 2V AP,LAT EXAM: XR KNEE LT 2V AP,LAT CLINICAL HISTORY: pain. TECHNIQUE: 2D digital imaging was performed. COMPARISON: CR XR KNEE LT 1V from 03/15/2021 FINDINGS: 3 views There is stable position alignment components of prosthesis. No fracture or loosening evident. IMPRESSION: DATA REPOSITORY: RADIATION DOSE DELIVERED:
--- NOTE | 2021-11-02 10:30 | DI.RAD_ITS ---
Exam(s) XR THUMB RT EXAM: XR THUMB RT CLINICAL HISTORY: mass. TECHNIQUE: 2D digital imaging was performed. COMPARISON: CR RIGHT HAND COMPLETE from 10/28/2014 FINDINGS: 3 views No evidence of fracture or dislocation. Moderate narrowing of the lateral aspect of the interphalang eal joint of the thumb noted, consistent with osteoarthritic degenerative change. The thumb metacarp ophalangeal joint appears unremarkable as does the articulation between the thumb metacarpal and trap ezium. Bone density normal. No osseous lesions. No radiopaque foreign body. IMPRESSION: Degenerative changes in the interphalangeal joint of the thumb DATA REPOSITORY: RADIATION DOSE DELIVERED:
== END 2021-11-02 10:48 | disposition home or self-care (01) ==
LOC: DIORS 10:47
PROVIDERS: PCP Nurse Practitioner; Referring Provider Nurse Practitioner; Visit Provider Physician Assistant Surgical
DX: Z96.652 Presence of left artificial knee joint (principal); R22.31 Localized swelling, mass and lump, right upper limb
CPT/HCPCS: 20550; 73140; 73560; J1030

== ENCOUNTER 2021-12-25 10:58 | Day surgery (SDC) | payer MEDICARE, SELFPAY ==
[2021-12-25 11:23] VITALS: BP 129/69; PULSE 66; RESP 18; TEMP 36.1; O2SAT 97
--- NOTE | 2021-12-25 12:11 | PDOC.DSDIS_ITS ---
Discharge Plan Disposition Patient Disposition: HOME Condition: Good Discharge Details Reason For Visit: Right thumb ganglion; Left little finger cyst Attending Provider: Tobias Williamson Primary Care Provider: Anna Shaffer Home Meds and New Rx's Prescriptions: Continued naproxen sodium 220 mg capsule 220 mg PO DAILY PRN multivitamin [Daily Multi-Vitamin] 1 EACH tablet 1 ea PO DAILY calcium carbonate-vitamin D3 [Calcium 600 + D(3)] 1 EACH tablet 1 ea PO DAILY diphenhydramine HCl [Benadryl] 25 MG capsule 25 mg PO HS PRNQty: 90 albuterol sulfate [ProAir HFA] 90 mcg/actuation HFA aerosol inhaler 2 puff Inhalation Q4H PRN Qty: 54 3RF Rx Instructions: DX: ASTHMA fluoxetine 20 mg capsule 20 mg PO DAILY Qty: 90 3RF fluticasone propion-salmeterol [Advair Diskus] 500-50 mcg/dose blister with device 1 inh Inhalation BID Qty: 3 3RF fluticasone propionate [Flonase Allergy Relief] 50 mcg/actuation spray,suspension 2 spray NS DAILY Qty: 54.6 3RF losartan 50 mg tablet 50 mg PO DAILY Qty: 90 3RF omeprazole 20 mg capsule,delayed release(DR/EC) See Rx Instructions .ROUTE .COMPLEX Qty: 90 3RF Dose Instruction: TAKE 1 CAPSULE BY MOUTH DAILY Rx Instructions: TAKE 1 CAPSULE BY MOUTH DAILY lamotrigine 150 MG tablet 150 mg PO HS lamotrigine [Lamictal] 100 MG tablet 100 mg PO .QAM acetaminophen 500 mg tablet 1,000 mg PO Q8H PRN Qty: 90 0RF Rx Instructions: Take two tablets up to every 8 hours as needed for pain Discharge Instructions Additional Instructions: Thumb Ganglion and Cyst Excision Discharge Instructions Activity: You should keep the hand/thumb elevated as much as possible for the first few days. You may use the other fingers as tolerated but avoid trying to do too much too soon. You may perform light activities with the dressing in place. Dressing/Cast: Your dressing should stay in place at all times for 48 hours. After 48 hours you may remove dressing. Please cover incisions with band-aides daily until follow-up. Medications: - You should take Tylenol and Ibuprofen for baseline pain control. - You may apply ice over the thumb and finger. Follow-up: 10-14 days Referrals: Tobias Williamson MD [ [facility] STAFF PHYSICIAN] - Activity:: Elevate Remove Dressings/Wound Care:: 48 hours Shower/Bathe:: 48 hours Diet:: As Tolerated Discharge Orders Discharge Orders: Discharge Order (Routine); Ordered 12/25/21 Ordered By: Sheila Doherty Discharge Data Discharge Date/Time-TO BE ENTERED AT DEPARTURE: 12/25/21 13:11 Discharge Comment: Pt d/c'd to self in personal vehicle.
[2021-12-25] MEDS: Lidocaine 1% Multi-Dose 10 ML VIAL ×2 (12:21→12:31)
[2021-12-25] MEDS: Sodium Bicarbonate 50 MEQ/50 ML VIAL (12:32)
--- NOTE | 2021-12-25 12:40 | SKI_PTH ---
PATIENT: Cheryl Cole LOC: [facility] U#:[id number] AGE/SX: 66/F ROOM: RE12/25/[address]: Tobias Williamson MD : [id number] BED: DIS: 12/25/2021 SPEC #: [id number] RECD: 12/25/21 17:34 STATUS: ZUHAIR REJackie #: [id number] LESLY: 12/25/21 12:[address]: Tobias Williamson DEPT: Surgical Specimen RECD BY: Elissa Anderson ENTERED: 12/25/21 17:35 SP TYPE: HANSEL GARCIA DR: Anna Shaffer APRN Tissues: 1 - SKIN BIOPSY(SHAVE/PUNCH) Procedures: GROSS AND MICRO LEVEL 4 Comments: [id number]
[2021-12-25 12:55] VITALS: BP 148/80; PULSE 68; RESP 16; TEMP 36.4; O2SAT 97
--- NOTE | 2021-12-25 14:43 | W.PM.OP ---
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 The mass persisted and caused pain to direct contact and with use. The diagnosis of a mucous cyst was made. The symptoms had not responded to conservative measures. I discussed cyst excision with the patient. I reviewed the risks of the procedure to include, but not limited to, bleeding, infection, pain, stiffness, recurrence, damage to nerves or vessels. Despite these risks, the patient elected to proceed. Findings: There was a cyst of the distal phalanx, arising from the DIP joint. The cyst and its capsule was removed and an arthrotomy at the cyst location performed. The mass of the right thumb seemed to arise from the dorsal and radial aspect of the EPL tendon and had a brown-yellow appearance, not cystic, which was suggestive of giant cell tumor. This was sent for pathology. Procedure Description: Cheryl was greeted in the preoperative holding area where the correct side was identified and marked. The consent was reviewed with the patient and signed. All questions were answered. She was taken back to the operating room. The patient was placed into the supine position on the operating room table with the left arm on an arm board. All bony prominences were well padded. No prophylactic antibiotics were administered since this was a clean, elective hand surgical case. The left arm was then prepped with Chloraprep and draped in a standard fashion with stockinette and extremity drape. A timeout to confirm correct identity, side and site, procedure, allergies, anesthesia, and medical concerns was performed. A digital block was then performed using 2% lidocaine with epinephrine and buffered with sodium bicarbonate. This was allowed time to set up completely and was tested before proceeding with the case. A longitudinal incision was then made overlying the cyst. The skin was incised sharply. Full-thickness flaps were then elevated to expose the cyst. The cyst capsule was then removed with a rongeur and followed back towards the DIP joint. Using the rongeur, I created a small arthrotomy from the origin of the mucous cyst. The finger was irrigated and once again checked to make sure that all components of the cyst were removed. The skin was then closed using a #4-0 nylon in interrupted fashion. The finger was dressed with Xeroform, 4 x 4, conform dressing. Attention was then turned to the right hand. The drapes for the left side were remvoed and the stretcher was rotated. The right arm was then prepped with Chloraprep and draped in a standard fashion with stockinette and extremity drape. A timeout to confirm correct identity, side and site, procedure, allergies, anesthesia, and medical concerns was performed. A field block was then performed using 2% lidocaine with epinephrine and buffered with sodium bicarbonate. This was allowed time to set up completely and was tested before proceeding with the case. A longitudinal incision was then made overlying the mass. The skin was incised sharply. Full-thickness flaps were then elevated to expose the mass. It was apparent that this wasn't a cyst as it had a irregular, lobular shape and a brown-yellow coloration. It was adherent to the EPL tendon. It appeared to be a giant cell tumor. The mass was then elevated off of the EPL tendon and other surrounding tissues. There was some adherance but no invasion of nearby tissues. The mass was sent to pathology. The wound was then irrigated. The wound was closed with a 3-0 Vicryl followed but a subcuticular 4-0 Monocryl. This was reinforced with skin affix skin glue and covered with a Mepilex dressing. Cheryl tolerated the procedure well and was returned to the Same Day Surgery area in a stable condition suffering no known complication.
== END 2021-12-25 13:11 | disposition home or self-care (01) ==
PROVIDERS: PCP Nurse Practitioner; Visit Provider Student in an Organized Health Care Education/Training Program
PROC: (CPT 26116; principal; 2021-12-25 13:00)
DX: D48.1 Neoplasm of uncertain behavior of connective and other soft tissue (principal)
CPT/HCPCS: 26116; 88305

== ENCOUNTER → 2022-01-03 10:33 | Outpatient (BNVA) | payer MEDICARE, SELFPAY | PROVIDERS: PCP Nurse Practitioner; Referring Provider Nurse Practitioner; Visit Provider Student in an Organized Health Care Education/Training Program | DX: Z47.89 Encounter for other orthopedic aftercare (principal); D48.1 Neoplasm of uncertain behavior of connective and other soft tissue; M67.442 Ganglion, left hand ==

== ENCOUNTER 2022-02-01 01:32 | Outpatient (CLI) | payer MEDICARE, SELFPAY ==
[2022-02-01 07:57] LABS: HCT 34.3 % (36.0-46.0); HGB 11.2 g/dL (11.2-15.7); MCHC 32.7 % (32.0-36.0); MCV 92 fL (80-95); MPV 9.2 fL (8.0-11.0); Platelet Count 303 10^3/uL (130-400); RBC 3.73 10^6/uL (3.93-5.22); RDW 13.8 % (11.7-14.6); RDW-SD 47.6 fL; WBC 5.85 10^3/uL (4.4-10.8)
[2022-02-01 08:39] LABS: ALT 54 U/L (14-59); AST 41 U/L (15-37); Albumin 3.5 g/dL (3.4-5.0); Alkaline Phosphatase 194 U/L (46-116); Anion Gap 4.6 mmol/L (3-11); BUN 17 mg/dL (7-18); Bilirubin, Total 0.3 mg/dL (0.2-1.0); CO2 32.4 mmol/L (21.0-32.0); Calcium 9.3 mg/dL (8.5-10.1); Calculated LDL 118 mg/dL (<100); Chloride 101 mmol/L (98-107); Cholesterol 191 mg/dL (<200); Estimated GFR 62.13 (mL/min/1.73m2); Glucose 83 mg/dL (74-106); HDL Cholesterol 61 mg/dL (40-60); Potassium 4.4 mmol/L (3.5-5.1); Sodium 138 mmol/L (136-145); Total Protein 7.1 g/dL (6.4-8.2); Triglyceride 60 mg/dL (<150)
== END 2022-02-01 01:33 | disposition home or self-care (01) ==
LOC: LBO 01:32
PROVIDERS: PCP Nurse Practitioner; Visit Provider Nurse Practitioner
DX: D64.9 Anemia, unspecified (principal); E78.5 Hyperlipidemia, unspecified; G47.00 Insomnia, unspecified; I10 Essential (primary) hypertension
CPT/HCPCS: 36415; 80053; 80061; 85027

== ENCOUNTER 2022-02-01 01:49 | Outpatient (CLI) | payer MEDICARE, SELFPAY ==
[2022-02-01] MEDS: Albuterol HFA 18 GM 200 PUFF INH IH (09:27)
[2022-02-01] MEDS: Inhaler, Assist Device 1 EACH MC (09:28)
--- NOTE | 2022-02-05 08:49 | W.PFT ---
Date of service: 02/01/22 Time of Service: 08:04 Pulmonary Function Test Result Requesting Provider Anna Shaffer Indications: Sarcoidosis and asthma Interpretation Spirometry: There is no airflow limitation. The FVC is low. There is no significant bronchodilator response. Lung Volumes: There is air trapping. Diffusion Capacity: Normal diffusion. Airway Pressure: There is increased airways resistance. Impression There is no chronic obstruction and no bronchodilator affect. There is some air trapping and increased airways resistance, which could be consistent with asthma in the correct clinical setting. The low FVC is likely due to non maximal effort. Note: When compared to 12/08/17, the FVC and FEV1 are decreased. Clinical Correlation therefore is recommended.
== END 2022-02-01 01:50 | disposition home or self-care (01) ==
LOC: RT 01:49
PROVIDERS: PCP Nurse Practitioner; Visit Provider Nurse Practitioner
DX: J45.909 Unspecified asthma, uncomplicated (principal); J98.8 Other specified respiratory disorders
CPT/HCPCS: 94060; 94726; 94729

== ENCOUNTER 2022-02-28 10:05 | Outpatient (CLI) | payer MEDICARE, SELFPAY ==
--- NOTE | 2022-02-28 08:15 | DI.RAD_ITS ---
Exam(s) XR KNEE LT 2V AP,LAT EXAM: XR KNEE LT 2V AP,LAT INDICATION: left TKA. COMPARISON: CR XR KNEE LT 2V AP,LAT from 11/02/2021 TECHNIQUE: 2D digital imaging was performed. Two views. FINDINGS: There has been no change in the alignment of the total knee prosthesis. There are no abnormal surrou nding bony lucencies. DATA REPOSITORY: RADIATION DOSE DELIVERED:
== END 2022-02-28 10:06 | disposition home or self-care (01) ==
LOC: DIORS 10:05
PROVIDERS: PCP Nurse Practitioner; Referring Provider Nurse Practitioner; Visit Provider Physician Assistant
DX: Z96.652 Presence of left artificial knee joint (principal); M77.41 Metatarsalgia, right foot
CPT/HCPCS: 99213; 73560

== ENCOUNTER 2022-03-05 12:21 | Outpatient (REF) | payer MEDICARE, SELFPAY ==
[2022-03-06 20:43] LABS: COVID-19 RT-PCR UVMMC Result Negative (Negative)
[2022-03-07 16:44] LABS: Influenza A RNA Result Negative (Negative); Influenza B RNA Result Negative (Negative); RSV RNA Result Negative (Negative)
== END 2022-03-05 12:22 | disposition home or self-care (01) ==
LOC: LBN 12:21
PROVIDERS: PCP Nurse Practitioner; Referring Provider Nurse Practitioner; Visit Provider Nurse Practitioner
DX: Z20.822 Contact with and (suspected) exposure to COVID-19 (principal); R05.8 Other specified cough; R06.02 Shortness of breath; R06.2 Wheezing
CPT/HCPCS: 87631; U0003

== ENCOUNTER 2022-04-04 01:17 | Outpatient (CLI) | payer MEDICARE, SELFPAY ==
--- NOTE | 2022-04-04 06:45 | DI.US_ITS ---
Exam(s) US ABDOMEN EXAM: US ABDOMEN CLINICAL HISTORY: chronically elevated alk phos,elevated lft's,r74.8,r94.5 TECHNIQUE: Ultrasound of complete upper abdomen performed using standard protocol. COMPARISON: US US OR ANESTHESIA from 02/28/2021 FINDINGS: There is no ascites evident. LIVER: There are no hepatic lesions evident nor obvious dilatation of intrahepatic ducts. GALLBLADDER/BILIARY: There are gallstones as well as sludge in the gallbladder lumen noted. The gall bladder wall does not appear edematous and there is no pericholecystic fluid. Common hepatic duct is slightly dilated, measuring 7 millimeters. The common hepatic duct isnot dilated, measuring 3-4mm at the level of sharon hepatis. PANCREAS: Round hypoechoic focus in the pancreatic head corresponds to the gastroduodenal artery at t his location. No ominous pancreatic mass. Pancreatic duct is not dilated SPLEEN: The spleen is not enlarged and there are no intrasplenic lesions evident. KIDNEYS:Kidneys exhibit normal size with no evidence of solid mass, calculus, nor hydronephrosis. No cortical cysts evident. ABDOMINAL AORTA: There is no evidence of abdominal aortic aneurysm. IVC: Normal diameter where visualized. IMPRESSION: 1. Cholelithiasis. Gallstones as well as sludge are noted in the gallbladder lumen. Gallbladder wa ll does not appear edematous. Common hepatic duct is slightly dilated, measuring 7 millimeters. Cor relation with blood work recommended. 2. No other significant ultrasound findings in the upper abdomen. 3. There is no ascites. DATA REPOSITORY:
== END 2022-04-04 01:37 ==
LOC: DI 01:17
PROVIDERS: PCP Nurse Practitioner; Visit Provider Nurse Practitioner
DX: R74.8 Abnormal levels of other serum enzymes (principal); R94.5 Abnormal results of liver function studies; K80.20 Calculus of gallbladder without cholecystitis without obstruction
CPT/HCPCS: 76700

== ENCOUNTER 2022-04-09 03:13 | Outpatient (CLI) | payer MEDICARE, SELFPAY ==
[2022-04-09 10:36] LABS: Abs Immature Grans 0.05 10^3/uL (0.0-0.06); Absolute Basophil Count 0.09 10^3/uL (0.0-0.2); Absolute Lymphocyte Count 2.27 10^3/uL (1.2-3.4); Absolute Monocyte Count 1.07 10^3/uL (0.1-0.8); Basophils % 0.8; Eosinophils % 1.4; HCT 35.3 % (36.0-46.0); HGB 11.4 g/dL (11.2-15.7); Immature Grans % 0.4; Lymphocytes % 19.3; MCH 30.3 pg (27.0-33.0); MCHC 32.3 % (32.0-36.0); MCV 94 fL (80-95); MPV 9.4 fL (8.0-11.0); Monocytes % 9.1; Platelet Count 326 10^3/uL (130-400); RBC 3.76 10^6/uL (3.93-5.22); RDW 13.2 % (11.7-14.6); RDW-SD 45.4 fL; WBC 11.75 10^3/uL (4.4-10.8)
[2022-04-09 10:38] LABS: Absolute Eosinophil Count 0.16 10^3/uL (0.0-0.7); Absolute Neutrophil Count 8.11 10^3/uL (1.2-6.7)
[2022-04-09 10:55] LABS: Alkaline Phosphatase 223 U/L (46-116); GGT 92 U/L (5-55)
== END 2022-04-09 03:14 | disposition home or self-care (01) ==
LOC: LBO 03:13
PROVIDERS: PCP Nurse Practitioner; Visit Provider Nurse Practitioner
DX: D64.9 Anemia, unspecified (principal); R74.8 Abnormal levels of other serum enzymes; D86.9 Sarcoidosis, unspecified; J45.909 Unspecified asthma, uncomplicated
CPT/HCPCS: 36415; 82977; 84075; 85025

== ENCOUNTER 2022-05-09 01:51 | Outpatient (CLI) | payer MEDICARE, SELFPAY ==
--- NOTE | 2022-05-09 08:15 | DI.DEXA_ITS ---
Exam(s) XR DEXA BONE DENSITY W/WO NURIA EXAM: XR DEXA BONE DENSITY W/WO NURIA CLINICAL HISTORY: osteopenia,screening for osteoporosis in postmenopausal woman,z78.0 TECHNIQUE: COMPARISON: DXA CENT SPINE HIP AND OR WB from 01/28/2018 FINDINGS: Lateral Spine Image: Unremarkable. No compression deformities identified. Left hip: Total T-Score: -1.7. This compares to -1.1 on the prior examination. Total Z-Score: -0.4 T- and Z-scores: The findings are consistent with osteopenia. Lumbar Spine: Total T-Score: -1.4. This compares to -0.4 on the prior examination. Total Z-Score: 0.5 T- and Z-scores: Findings are consistent with osteopenia. IMPRESSION: Findings are consistent with osteopenia in the lumbar spine and left hip.
== END 2022-05-09 02:11 ==
LOC: DI 01:51
PROVIDERS: PCP Nurse Practitioner; Visit Provider Nurse Practitioner
DX: M85.88 Other specified disorders of bone density and structure, other site (principal); Z78.0 Asymptomatic menopausal state
CPT/HCPCS: 77080

== ENCOUNTER → 2023-02-03 10:55 | Outpatient (BNVA) | payer MEDICARE, SELFPAY | PROVIDERS: PCP Nurse Practitioner; Referring Provider Nurse Practitioner; Visit Provider Student in an Organized Health Care Education/Training Program | DX: J45.909 Unspecified asthma, uncomplicated (principal); Z79.51 Long term (current) use of inhaled steroids; Z79.899 Other long term (current) drug therapy; D86.9 Sarcoidosis, unspecified | CPT/HCPCS: 99214 ==

== ENCOUNTER 2023-03-08 11:30 | Outpatient (REF) | payer MEDICARE, SELFPAY ==
[2023-03-08 15:54] LABS: Source Nasal/Nares
[2023-03-08 16:51] LABS: COVID-19 PCR Negative (Negative)
== END 2023-03-08 11:31 | disposition home or self-care (01) ==
LOC: LBN 11:30
PROVIDERS: PCP Nurse Practitioner; Visit Provider Nurse Practitioner Family
DX: J45.41 Moderate persistent asthma with (acute) exacerbation (principal); Z20.822 Contact with and (suspected) exposure to COVID-19
CPT/HCPCS: 87635

== ENCOUNTER → 2023-04-07 08:08 | Outpatient (BNVA) | payer MEDICARE, SELFPAY | PROVIDERS: PCP Nurse Practitioner; Referring Provider Nurse Practitioner; Visit Provider Student in an Organized Health Care Education/Training Program | DX: M70.61 Trochanteric bursitis, right hip (principal) | CPT/HCPCS: 20610; J1040 ==

== ENCOUNTER → 2023-04-15 02:43 | Outpatient (CLI) | payer MEDICARE, SELFPAY ==
--- NOTE | 2023-04-15 08:00 | DI.MAMMO_ITS ---
Exam(s) MAMMO SCREENING EXAM: MAMMO SCREENING CLINICAL HISTORY: screening,z12.39. TECHNIQUE: Bilateral full field digital CC and MLO mammographic images were obtained with 3D tomosyn thesis and utilizing computer aided detection (CAD). COMPARISON: Prior mammograms were reviewed. FINDINGS: There has been no significant change in the appearance and distribution of the fibroglandular tissue. Stable asymmetric densities in the right breast remain unchanged from prior mammograms. There are no new spiculated masses nor malignant appearing microcalcification groups. There is no significant architectural distortion nor skin thickening-retraction. IMPRESSION: No radiographic evidence of malignancy. BI-RADS Category 2 - Benign Findings Breast Density - Category B - Scattered areas of fibroglandular density Breast density Category C or D implies that the patient has dense breast tissue. Dense breast tissue can make it harder to find cancer on a mammogram. Dense breast tissue is also associated with an incr eased risk of breast cancer. This information about the result of the mammogram report was provided to the patient to raise their awareness. Use this report when you speak with the patient about their risks for breast cancer, which includes their family history. At that time, you may recommend additional screening tests (Ultrasoun d or MRI) as these tests may add significant information. A negative radiographic report should not delay biopsy if a dominant or clinically suspicious mass is present. Up to ten percent of cancers are not identified on mammography. A negative report may reinforce clinical impression. Adenosis and dense breasts may obscure an underlying neoplasm. False positive reports average 6 to 10%. Patient will receive a letter notifying them of these results.
== END ==
PROVIDERS: PCP Nurse Practitioner; Visit Provider Nurse Practitioner
DX: Z12.31 Encounter for screening mammogram for malignant neoplasm of breast (principal)
CPT/HCPCS: 77063; 77067

== ENCOUNTER 2023-04-24 04:20 | Outpatient (CLI) | payer MEDICARE, SELFPAY ==
[2023-04-24 07:29] LABS: Abs Immature Grans 0.01 10^3/uL (0.0-0.06); Absolute Basophil Count 0.04 10^3/uL (0.0-0.2); Absolute Eosinophil Count 0.17 10^3/uL (0.0-0.7); Absolute Lymphocyte Count 2.01 10^3/uL (1.2-3.4); Absolute Monocyte Count 0.79 10^3/uL (0.1-0.8); Absolute Neutrophil Count 2.72 10^3/uL (1.2-6.7); Basophils % 0.7; HCT 34.7 % (36.0-46.0); HGB 11.2 g/dL (11.2-15.7); Immature Grans % 0.2; MCH 29.4 pg (27.0-33.0); MCHC 32.3 % (32.0-36.0); MCV 91 fL (80-95); MPV 9.3 fL (8.0-11.0); Monocytes % 13.8; Neutrophils % 47.3; Platelet Count 234 10^3/uL (130-400); RBC 3.81 10^6/uL (3.93-5.22); RDW 13.3 % (11.7-14.6); RDW-SD 44.3 fL; WBC 5.74 10^3/uL (4.4-10.8)
[2023-04-24 07:44] LABS: ALT 23 U/L (14-59); AST 18 U/L (15-37); Albumin 3.7 g/dL (3.4-5.0); Alkaline Phosphatase 114 U/L (46-116); Anion Gap 7.3 mmol/L (3-11); BUN 19 mg/dL (7-18); Bilirubin, Total 0.3 mg/dL (0.2-1.0); CO2 32.7 mmol/L (21.0-32.0); Calcium 9.5 mg/dL (8.5-10.1); Calculated LDL 107 mg/dL (<100); Chloride 104 mmol/L (98-107); Cholesterol 203 mg/dL (<200); Estimated GFR 61.75 (mL/min/1.73m2); Glucose 87 mg/dL (74-106); HDL Cholesterol 82 mg/dL (40-60); Potassium 4.2 mmol/L (3.5-5.1); Sodium 144 mmol/L (136-145); Total Protein 7.1 g/dL (6.4-8.2); Triglyceride 70 mg/dL (<150)
== END 2023-04-24 04:21 | disposition home or self-care (01) ==
LOC: LBO 04:21
PROVIDERS: PCP Nurse Practitioner; Referring Provider Nurse Practitioner; Visit Provider Nurse Practitioner
DX: I10 Essential (primary) hypertension (principal); E78.5 Hyperlipidemia, unspecified
CPT/HCPCS: 36415; 80053; 80061; 85025

== ENCOUNTER → 2023-06-23 09:36 | Outpatient (BNVA) | payer MEDICARE, SELFPAY | PROVIDERS: PCP Nurse Practitioner; Referring Provider Nurse Practitioner; Visit Provider Physician Assistant Surgical | DX: J45.909 Unspecified asthma, uncomplicated (principal); D86.9 Sarcoidosis, unspecified | CPT/HCPCS: 36415; 99214 ==

== ENCOUNTER 2023-06-23 14:17 | Outpatient (REF) | payer MEDICARE, SELFPAY ==
[2023-06-25 09:46] LABS: IgE 377 IU/mL (<158)
[2023-06-25 14:14] LABS: Aspergillus Fumigatus IgE 45.3 kU/L (<0.70); Cat Epithelium IgE 0.53 kU/L (<0.70); Cedar, IgE <0.10 kU/L (<0.70); Cockroach IgE <0.10 kU/L (<0.70); D Farinae IgE 0.34 kU/L (<0.70); D Pteronyssinus IgE 0.15 kU/L (<0.70); Dog Dander IgE 0.11 kU/L (<0.70); Eastern Sycamore IgE 0.14 kU/L (<0.70); Giant Ragweed IgE 0.16 kU/L (<0.70); Goldenrod IgE <0.10 kU/L (<0.70); Oak IgE <0.10 kU/L (<0.70); Silver Birch IgE <0.10 kU/L (<0.70)
[2023-06-25 14:40] LABS: False Ragweed, IgE <0.10 kU/L (<0.70)
[2023-06-25 15:53] LABS: Mouse Serum Protein IgE <0.10 kU/L (<0.70)
[2023-06-27 16:16] LABS: CLASS 0; Cedar Red IgE <0.10 kU/L (<0.35)
== END 2023-06-23 14:18 | disposition home or self-care (01) ==
LOC: LBN 14:17
PROVIDERS: PCP Nurse Practitioner; Visit Provider Physician Assistant Surgical
DX: J45.909 Unspecified asthma, uncomplicated (principal)
CPT/HCPCS: 86003; 82785

== ENCOUNTER → 2023-07-22 09:31 | Outpatient (BNVA) | payer MEDICARE, SELFPAY | PROVIDERS: PCP Nurse Practitioner; Referring Provider Nurse Practitioner; Visit Provider Physician Assistant Surgical | DX: J45.909 Unspecified asthma, uncomplicated (principal); D86.9 Sarcoidosis, unspecified | CPT/HCPCS: 99214 ==

== ENCOUNTER → 2023-09-17 12:54 | Outpatient (BNVA) | payer MEDICARE, SELFPAY | PROVIDERS: PCP Nurse Practitioner; Referring Provider Nurse Practitioner; Visit Provider Internal Medicine Critical Care Medicine | DX: J45.909 Unspecified asthma, uncomplicated (principal); R05.9 Cough, unspecified | CPT/HCPCS: 36415; 99215 ==

== ENCOUNTER 2023-09-17 14:07 | Outpatient (REF) | payer MEDICARE, SELFPAY ==
[2023-09-17 18:15] LABS: Abs Immature Grans 0.02 10^3/uL (0.0-0.06); Absolute Basophil Count 0.06 10^3/uL (0.0-0.2); Absolute Lymphocyte Count 2.07 10^3/uL (1.2-3.4); Absolute Monocyte Count 0.77 10^3/uL (0.1-0.8); Absolute Neutrophil Count 5.21 10^3/uL (1.2-6.7); Basophils % 0.7 %; Eosinophils % 1.2 %; HCT 32.9 % (36.0-46.0); HGB 10.7 g/dL (11.2-15.7); Immature Grans % 0.2 %; Lymphocytes % 25.2 %; MCH 29.9 pg (27.0-33.0); MCHC 32.5 % (32.0-36.0); MCV 92 fL (80-95); MPV 9.9 fL (8.0-11.0); Monocytes % 9.4 %; Neutrophils % 63.3 %; Platelet Count 296 10^3/uL (130-400); RBC 3.58 10^6/uL (3.93-5.22); RDW 13.9 % (11.7-14.6); RDW-SD 47.5 fL; WBC 8.23 10^3/uL (4.4-10.8)
[2023-09-23 13:25] LABS: IgE 312 IU/mL (<158)
== END 2023-09-17 14:08 | disposition home or self-care (01) ==
LOC: LBN 14:07
PROVIDERS: PCP Nurse Practitioner; Visit Provider Internal Medicine Critical Care Medicine
DX: J45.909 Unspecified asthma, uncomplicated (principal)
CPT/HCPCS: 82785; 85025

== ENCOUNTER → 2023-09-17 14:11 | Outpatient (CLI) | payer MEDICARE, SELFPAY ==
--- NOTE | 2023-09-17 14:19 | DI.RAD_ITS ---
Exam(s) XR CHEST 2V PA LATERAL EXAM: XR CHEST 2V PA LATERAL CLINICAL HISTORY: uncontrolled Asthma, brennan,J45.909 TECHNIQUE: 2D digital imaging was performed. Two views. COMPARISON: CR XR CHEST 2V PA LATERAL from 10/09/2021 FINDINGS: HEART: Normal size. Aorta: Not dilated. PULMONARY VASCULATURE: Normal. MEDIASTINUM: Unremarkable. LUNGS: Clear. PLEURAL SPACE: No pleural effusion or pneumothorax. BONE:Unremarkable for age. SOFT TISSUES: Unremarkable. IMPRESSION: No acute abnormality. DATA REPOSITORY: RADIATION DOSE DELIVERED:
== END ==
PROVIDERS: PCP Nurse Practitioner; Visit Provider Internal Medicine Critical Care Medicine
DX: R05.9 Cough, unspecified (principal); J45.909 Unspecified asthma, uncomplicated
CPT/HCPCS: 71046

== ENCOUNTER → 2023-11-04 13:21 | Outpatient (BNVA) | payer MEDICARE, SELFPAY | PROVIDERS: PCP Nurse Practitioner; Referring Provider Nurse Practitioner; Visit Provider Internal Medicine Critical Care Medicine | DX: J45.30 Mild persistent asthma, uncomplicated (principal) | CPT/HCPCS: 99213 ==

== ENCOUNTER → 2023-11-05 08:54 | Outpatient (BNVA) | payer MEDICARE, SELFPAY | PROVIDERS: PCP Nurse Practitioner; Referring Provider Nurse Practitioner; Visit Provider Physician Assistant Surgical | DX: J45.40 Moderate persistent asthma, uncomplicated (principal) | CPT/HCPCS: 96372 ==

== ENCOUNTER → 2023-12-23 10:04 | Outpatient (BNVA) | payer MEDICARE, SELFPAY | PROVIDERS: PCP Nurse Practitioner; Referring Provider Nurse Practitioner; Visit Provider Physician Assistant Surgical | DX: J45.30 Mild persistent asthma, uncomplicated (principal); D86.9 Sarcoidosis, unspecified | CPT/HCPCS: 99214 ==

== ENCOUNTER → 2024-03-24 10:07 | Outpatient (BNVA) | payer MEDICARE, SELFPAY | PROVIDERS: PCP Nurse Practitioner; Referring Provider Nurse Practitioner; Visit Provider Physician Assistant Surgical | DX: J45.30 Mild persistent asthma, uncomplicated (principal); D86.9 Sarcoidosis, unspecified | CPT/HCPCS: 36415; 99214 ==

== ENCOUNTER 2024-03-24 11:11 | Outpatient (REF) | payer MEDICARE, SELFPAY ==
[2024-03-24 12:04] LABS: Abs Immature Grans 0.01 10^3/uL (0.0-0.06); Absolute Basophil Count 0.06 10^3/uL (0.0-0.2); Absolute Eosinophil Count 0.13 10^3/uL (0.0-0.7); Absolute Lymphocyte Count 1.97 10^3/uL (1.2-3.4); Absolute Monocyte Count 0.61 10^3/uL (0.1-0.8); Basophils % 0.8 %; Eosinophils % 1.7 %; HCT 33.1 % (36.0-46.0); HGB 10.9 g/dL (11.2-15.7); Immature Grans % 0.1 %; Lymphocytes % 25.7 %; MCH 30.5 pg (27.0-33.0); MCHC 32.9 % (32.0-36.0); MCV 93 fL (80-95); Monocytes % 7.9 %; Neutrophils % 63.8 %; Platelet Count 275 10^3/uL (130-400); RBC 3.57 10^6/uL (3.93-5.22); RDW 13.3 % (11.7-14.6); RDW-SD 45.4 fL; WBC 7.68 10^3/uL (4.4-10.8)
[2024-03-24 18:08] LABS: IgE 184 IU/mL (<158)
== END 2024-03-24 11:12 | disposition home or self-care (01) ==
LOC: LBN 11:11
PROVIDERS: PCP Nurse Practitioner; Visit Provider Physician Assistant Surgical
DX: J45.30 Mild persistent asthma, uncomplicated
CPT/HCPCS: 82785; 85025

== ENCOUNTER → 2024-06-24 08:06 | Outpatient (BNVA) | payer MEDICARE, SELFPAY | PROVIDERS: PCP Nurse Practitioner; Referring Provider Nurse Practitioner; Visit Provider Physician Assistant Surgical | DX: J45.30 Mild persistent asthma, uncomplicated (principal); D86.9 Sarcoidosis, unspecified | CPT/HCPCS: 99214 ==

== ENCOUNTER 2024-07-02 00:49 | Outpatient (CLI) | payer MEDICARE, SELFPAY ==
[2024-07-02 07:51] LABS: HCT 34.8 % (36.0-46.0); HGB 11.2 g/dL (11.2-15.7); MCH 29.3 pg (27.0-33.0); MCHC 32.2 % (32.0-36.0); MCV 91 fL (80-95); MPV 9.7 fL (8.0-11.0); Platelet Count 309 10^3/uL (130-400); RBC 3.82 10^6/uL (3.93-5.22); RDW 12.9 % (11.7-14.6); RDW-SD 42.5 fL; WBC 6.16 10^3/uL (4.4-10.8)
[2024-07-02 08:36] LABS: ALT 24 U/L (14-59); AST 25 U/L (15-37); Albumin 3.6 g/dL (3.4-5.0); Alkaline Phosphatase 125 U/L (46-116); Anion Gap 5.9 mmol/L (3-11); BUN 20 mg/dL (7-18); Bilirubin, Total 0.5 mg/dL (0.2-1.0); CO2 31.1 mmol/L (21.0-32.0); CREATININE 0.9 mg/dL (0.55-1.02); Calcium 9.5 mg/dL (8.5-10.1); Calculated LDL 85 mg/dL (<100); Chloride 105 mmol/L (98-107); Cholesterol 154 mg/dL (<200); Estimated GFR 69.64 (mL/min/1.73m2); Ferritin 32 ng/mL (8-252); Glucose 92 mg/dL (74-106); HDL Cholesterol 57 mg/dL (>or=50); Potassium 4.1 mmol/L (3.5-5.1); Sodium 142 mmol/L (136-145); Total Protein 7.1 g/dL (6.4-8.2); Triglyceride 62 mg/dL (<150)
== END 2024-07-02 00:50 | disposition home or self-care (01) ==
PROVIDERS: PCP Nurse Practitioner; Referring Provider Nurse Practitioner; Visit Provider Nurse Practitioner
DX: I10 Essential (primary) hypertension (principal); Z13.220 Encounter for screening for lipoid disorders; D64.9 Anemia, unspecified
CPT/HCPCS: 36415; 80053; 80061; 85027; 82728

== ENCOUNTER → 2024-09-01 09:40 | Outpatient (BNVA) | payer MEDICARE, SELFPAY | PROVIDERS: PCP Nurse Practitioner; Referring Provider Nurse Practitioner; Visit Provider Physician Assistant Surgical | DX: J45.30 Mild persistent asthma, uncomplicated (principal); D86.9 Sarcoidosis, unspecified | CPT/HCPCS: 99214; 96372 ==

== ENCOUNTER → 2024-09-21 11:04 | Outpatient (BNVA) | payer MEDICARE, SELFPAY | PROVIDERS: PCP Nurse Practitioner; Referring Provider Nurse Practitioner; Visit Provider Physician Assistant Surgical | DX: J45.30 Mild persistent asthma, uncomplicated (principal); D86.9 Sarcoidosis, unspecified | CPT/HCPCS: 99214; 94640; J7620 ==

== ENCOUNTER → 2024-10-25 09:17 | Outpatient (BNVA) | payer MEDICARE, SELFPAY | PROVIDERS: PCP Nurse Practitioner; Referring Provider Nurse Practitioner; Visit Provider Internal Medicine Pulmonary Disease | DX: J45.50 Severe persistent asthma, uncomplicated (principal); J30.9 Allergic rhinitis, unspecified; D86.9 Sarcoidosis, unspecified | CPT/HCPCS: 99214 ==

== ENCOUNTER → 2024-11-15 09:58 | Outpatient (BNVA) | payer MEDICARE, SELFPAY | PROVIDERS: PCP Nurse Practitioner; Referring Provider Nurse Practitioner; Visit Provider Physician Assistant | DX: M70.61 Trochanteric bursitis, right hip (principal); M70.62 Trochanteric bursitis, left hip | CPT/HCPCS: 99213 ==

== ENCOUNTER 2024-12-07 13:16 | Outpatient (CLI) | payer MEDICARE, SELFPAY ==
--- NOTE | 2024-12-07 09:45 | DI.RAD_ITS ---
Exam(s) XR HIP PELVIS ADULT BL EXAM: XR HIP PELVIS ADULT BL CLINICAL HISTORY: BILATERAL HIP PAIN. TECHNIQUE: 2D digital imaging was performed. COMPARISON: No exams were available for comparison FINDINGS: Three views AP view of the pelvis and frog-lateral views of both hips: No evidence of pelvic nor hip fractures. No hip joint space narrowing nor osteophytes nor degenerative subarticular cysts evident. No obvious evidence of femoral acetabular impingement. No evidence of avascular necrosis. Bone density normal. No osseous lesions. SI joints appear unremarkable. There is advanced disc space narrowing noted L4-5 level. IMPRESSION: No significant osseous findings in the pelvis and hips. Advanced disc space narrowing in the lower lumbar spine. DATA REPOSITORY: RADIATION DOSE DELIVERED:
== END 2024-12-07 13:17 | disposition home or self-care (01) ==
LOC: DIORS 13:16
PROVIDERS: PCP Nurse Practitioner; Referring Provider Nurse Practitioner; Visit Provider Student in an Organized Health Care Education/Training Program
DX: M70.61 Trochanteric bursitis, right hip (principal); M70.62 Trochanteric bursitis, left hip
CPT/HCPCS: 99214; 73521

== ENCOUNTER → 2025-01-18 00:26 | Outpatient (CLI) | payer MEDICARE, SELFPAY ==
--- NOTE | 2025-01-18 06:30 | DI.RAD_ITS ---
Exam(s) XR CHEST 2V PA LATERAL EXAM: XR CHEST 2V PA LATERAL CLINICAL HISTORY: dyspnea, hx sarcoidosis,d86.9. TECHNIQUE: 2D digital imaging was performed. COMPARISON: CR XR CHEST 2V PA LATERAL from 10/09/2021 CR XR CHEST 2V PA LATERAL from 09/17/2023 FINDINGS: 2 views: Heart size is normal. The mediastinum is not widened. No obvious findings to suggest gross lymphadenopathy. Some platelike atelectasis or scarring in the lateral left lung base is unchanged. Slight blunting of the right costophrenic angle is noted on the present study. This may indicate a small amount of pleural fluid or pleural thickening more so than previous. IMPRESSION: Bilateral lung base findings as above. DATA REPOSITORY: RADIATION DOSE DELIVERED:
== END ==
PROVIDERS: PCP Nurse Practitioner; Visit Provider Internal Medicine Pulmonary Disease
DX: D86.9 Sarcoidosis, unspecified (principal); J98.11 Atelectasis; R91.8 Other nonspecific abnormal finding of lung field
CPT/HCPCS: 71046

== ENCOUNTER 2025-01-27 06:16 | Day surgery (SDC) | payer MEDICARE, SELFPAY ==
--- NOTE | 2025-01-26 16:08 | W.ANESPRE ---
General Info Date of Service Date Performed: 01/27/25 Height: 5 ft 5 in Weight: 64.41 kg Body Mass Index (BMI): 23.6 Surgical Procedure: Operation Date: 01/27/25 07:50 Proposed Procedure Side Surgeon p Endoscopic Iliotibial Band Release w/ Trochanteric Bursectomy and unlikely Gluteal Tendon Repair Right Joaquin Lainez MD Meds Allergies and Home Medications Allergies Allergy/AdvReac Type Severity Reaction Status Date / Time divalproex sodium (From AdvReac Intermediate liver Verified 01/27/25 06:24 Depakote) inflamation topiramate (From Topamax) AdvReac Intermediate liver Verified 01/27/25 06:24 inflamation Penicillins AdvReac Unknown Nausea Verified 01/27/25 06:24 Home Medication Medication Instructions Recorded calcium 600 mg (as 1 ea PO DAILY 06/30/12 carbonate)-vitamin D3 10 mcg (400 unit) tablet (Calcium 600 + D(3)) multivitamin (Daily Multi-Vitamin 1 ea PO DAILY 06/30/12 tablet) diphenhydramine HCl 25 mg capsule 25 mg PO HS PRN #90 tab-caps 06/22/14 (Benadryl) lamotrigine 100 mg tablet 100 mg PO .QAM 09/15/17 (Lamictal) lamotrigine 150 mg tablet 150 mg PO HS 09/15/17 acetaminophen 500 mg tablet 1,000 mg (2 x 500 mg) PO Q8H PRN 02/28/21 pain #90 tabs naproxen sodium 220 mg capsule 220 mg PO DAILY PRN 05/31/21 cholecalciferol (vitamin D3) 50 50 mcg PO DAILY 06/06/22 mcg (2,000 unit) tablet losartan 50 mg tablet See Rx Instructions .Route 05/24/24 .COMPLEX #90 tabs albuterol sulfate 90 mcg/actuation 2 puff inhalation Q4H PRN #54 grams 06/15/24 aerosol inhaler fluoxetine 20 mg capsule See Rx Instructions .Route 06/15/24 .COMPLEX #90 caps fluticasone propionate 50 2 spray NS DAILY #54.6 grams 06/15/24 mcg/actuation nasal spray,suspension (Flonase Allergy Relief) omalizumab 300 mg/2 mL 300 mg (2 mL) subcut Q4W #2 mL 06/24/24 subcutaneous auto-injector (Xolair) omeprazole 20 mg capsule,delayed See Rx Instructions .Route 07/08/24 release .COMPLEX #90 caps budesonide-formoterol HFA 160 2 puff inhalation BID PRN 08/18/24 mcg-4.5 mcg/actuation aerosol wheezing, shortness of breath inhaler #30.6 grams epinephrine 0.3 mg/0.3 mL 0.3 mg (0.3 mL) IM ONCE #1 ea 08/31/24 injection, auto-injector (EpiPen) ipratropium 0.5 mg-albuterol 3 mg 3 ml inhalation Q4H PRN wheezing 09/21/24 (2.5 mg base)/3 mL nebulization #180 mL soln montelukast 10 mg tablet 10 mg PO DAILY #90 tabs 10/25/24 (Singulair) Held on 01/26/25. Instructions: didn't work tiotropium bromide 1.25 See Rx Instructions .Route 12/06/24 mcg/actuation mist for inhalation .COMPLEX #4 grams (Spiriva Respimat) Current Visit Medications: Current Medications Generic Name Dose Route Start Last Admin Trade Name Freq PRN Reason Stop Dose Admin Ringer's Solution 1,000 mls @ 30 mls/hr 01/27/25 06:00 IV 01/27/25 23:59 INFUSION CIERRA Cefazolin Sodium/Dextrose 2 gm in 50 mls @ 100 mls/hr 01/27/25 06:00 Ancef Duplex IVPB 01/27/25 23:59 PREOP CIERRA Tranexamic Acid/Sodium Chloride 1,000 mg in 100 mls @ 600 mls/hr 01/27/25 06:00 IVPB 01/27/25 23:59 PREOP CIERRA IV Miscellaneous Supplies 1 each 01/27/25 06:00 Iv Access IV 01/27/25 23:59 DIRECTED CIERRA Sodium Chloride 0 ml 01/27/25 06:00 Normal Saline Flush 10 Ml Syr IV 01/27/25 23:59 PRN PRN Sodium Chloride 0 ml 01/27/25 06:00 Normal Saline 10 Ml Vial IJ 01/27/25 23:59 DIRECTED PRN Sterile Water 0 ml 01/27/25 06:00 Water,Injection,Sterile 10 Ml Vial IJ 11/20/25 23:59 DIRECTED PRN PFSH Active Problems Active Problems: Problem Status Onset Code Iliotibial band syndrome of right side Acute M76.31 Trochanteric bursitis, left hip Acute M70.62 Severe persistent asthma Acute J45.50 Tubular adenoma of colon Acute ~02/2024 D12.6 H/O colonoscopy Chronic ~04/29/24 Z98.890 Skin lesion of face Acute L98.9 Trochanteric bursitis, right hip Acute M70.61 Lesion of skin of nose Acute L98.9 Metatarsalgia of right foot Acute M77.41 Insomnia Chronic G47.00 Hypertension Chronic I10 Asthma Chronic J45.909 GERD (gastroesophageal reflux disease) Chronic K21.9 Hyperlipidemia Chronic E78.5 Seizure disorder Chronic G40.909 Depression Chronic F32.9 Allergic rhinitis Acute J30.9 Epigastric pain Acute 08/13/17 R10.13 Headache Acute 12 R51 Sarcoidosis Acute D86.9 Ganglion cyst of finger Acute M67.449 Elevated LFTs Acute R94.5 Elevated alkaline phosphatase level Acute R74.8 Osteopenia Acute M85.80 Low vitamin D level Acute R79.89 Petechiae Acute R23.3 Cough Acute R05 SOB (shortness of breath) Acute R06.02 Fatigue Acute R53.83 Wheeze Acute ~09/17/23 R06.2 Screening for cholesterol level Acute Z13.220 Trigger middle finger of right hand Acute M65.331 History of total left knee replacement Acute Z96.652 Anemia Chronic ~2018 D64.9 Medical History Medical History COVID (07/19/21) [place] [facility] [place] 07/20/21 Abnormally prolonged clotting time Per [facility] [place]. 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 Fitzgerald Tobacco Smoking/Tobacco Use Status: Never Alcohol Alcohol Intake: former Year quit: 2018 Substance Use Substance use: Never Substance use type: does not use Vital Signs and Lab Results Vital Signs Comment Vital Signs Comment:: Temp Pulse Resp BP Pulse Ox 36 C L 60 16 103/60 99 01/27/25 06:16 01/27/25 06:16 01/27/25 06:16 01/27/25 06:16 01/27/25 06:16 Imaging and Studies Imaging and Studies Study information below may be from another EMR and interpreted by another provider. Please see original notes in EMR for more complete details. Pulmonary Function Summary: 12/2017: Spirometry shows borderline mild obstructive airways disease with no significant bronchodilator response. This may represent a normal variant. Lung volumes show no evidence of restriction. Diffusion capacity normal. Airways resistance normal. IMPRESSION: Borderline mild obstructive airways disease with no significant bronchodilator response. This may represent a normal variant. Clinical correlation recommended. When this study was compared to previous ones from 05/07/05, 03/08/08, and 01/31/10, the patient has a total of 220 cc's drop in FVC and 390 cc's drop in FEV1. Spirometry was largely stable up until 2009 and there is a slight decline in both measurements from 2009 to now. Anesthesia Assessment and Plan Anesthesia History Personal History: No History of Anesthesia Complications Family History: No Family History of Anesthesia Complications Exercise Tolerance Exercise Tolerance: Metabolic Equivalents>4 Pertinent Negatives Pertinent Negatives: No Symptoms of GERD (well controlled GERD ) and No Major Cardiovascular Symptoms or Complaints Cardiac & Pulmonary Exam Cardiac Exam: Normal S1/S2 Heart Sounds Pulmonary Exam: Rhonchi Present (inspiratory and expiratory ) Implantable Cardiac Device Does patient have a Pacemaker or an ICD?: No Airway Exam Known Difficult Airway: No Mallampati Class: 1 Mouth Opening: Normal (> 3cm) Thyromental Distance: Greater than 3 cm Neck Range of Motion: Full ROM Neck Circumference: Normal Teeth Condition: Normal Dentition ASA Classification ASA Score: ASA 2 Emergency Case?: No NPO Status NPO Status: NPO Clears >2 hours, Solids >8 hours Anesthesia Plan Resuscitation Status: Full Code Anesthesia Technique: General Anesthesia Airway Planned: Endotracheal Tube Monitors Used: Standard Monitors Preoperative Comments:: Pt states she had a seizure 6 weeks ago has a handful a year Has used albuterol 3x a day for 2 years Stated she bruises easily- followed by by hematology at [facility]
[2025-01-27] VITALS (19 sets, daily range): BP systolic 82–115; BP diastolic 38–72; PULSE 55–80; RESP 10–18; TEMP 36–36.6; O2SAT 89–100; BMI 23.6
[2025-01-27] MEDS: Lactated Ringers 1,000 ML 30 ML IV (06:52)
--- NOTE | 2025-01-27 07:06 | W.PM.DSUDISC ---
Date of service: 01/27/25 Discharge Plan Disposition Patient Disposition: Home Condition: Stable Discharge Details Attending Provider: Joaquin Lainez Primary Care Provider: Anna Shaffer Home Meds and New Rx's Prescriptions: New naproxen 250 mg tablet 250 - 500 mg PO BID PRN (Reason: Moderate pain) Qty: 40 0RF aspirin 81 mg tablet,delayed release (DR/EC) 81 mg PO DAILY 14 Days Qty: 14 0RF oxycodone 5 mg tablet 5 - 10 mg PO Q4H PRN (Reason: Moderate to severe pain) Qty: 18 0RF Continued naproxen sodium 220 mg capsule 220 mg PO DAILY PRN fluoxetine 20 mg capsule See Rx Instructions .ROUTE .COMPLEX Qty: 90 3RF Dose Instruction: TAKE 1 CAPSULE BY MOUTH DAILY Rx Instructions: TAKE 1 CAPSULE BY MOUTH DAILY fluticasone propionate [Flonase Allergy Relief] 50 mcg/actuation spray,suspension 2 spray NS DAILY Qty: 54.6 3RF albuterol sulfate 90 mcg/actuation HFA aerosol inhaler 2 puff Inhalation Q4H PRN Qty: 54 3RF Rx Instructions: DX: ASTHMA epinephrine [EpiPen] 0.3 mg/0.3 mL auto-injector 0.3 mg IM ONCE Qty: 1 0RF Rx Instructions: as a single dose; may repeat once cholecalciferol (vitamin D3) 50 mcg (2,000 unit) tablet 50 mcg PO DAILY Xolair 300 mg/2 mL auto-injector 300 mg subcut Q4W Qty: 2 12RF ipratropium-albuterol 0.5 mg-3 mg(2.5 mg base)/3 mL solution for nebulization 3 ml inhalation Q4H PRN (Reason: wheezing) Qty: 180 12RF montelukast [Singulair] 10 mg tablet 10 mg PO DAILY Qty: 90 3RF multivitamin [Daily Multi-Vitamin] 1 EACH tablet 1 ea PO DAILY calcium carbonate-vitamin D3 [Calcium 600 + D(3)] 1 EACH tablet 1 ea PO DAILY diphenhydramine HCl [Benadryl] 25 MG capsule 25 mg PO HS PRNQty: 90 losartan 50 mg tablet See Rx Instructions .ROUTE .COMPLEX Qty: 90 3RF Dose Instruction: TAKE 1 TABLET BY MOUTH DAILY Rx Instructions: TAKE 1 TABLET BY MOUTH DAILY omeprazole 20 mg capsule,delayed release(/EC) See Rx Instructions .ROUTE .COMPLEX Qty: 90 3RF Dose Instruction: TAKE 1 CAPSULE BY MOUTH DAILY Rx Instructions: TAKE 1 CAPSULE BY MOUTH DAILY budesonide-formoterol 160-4.5 mcg/actuation HFA aerosol inhaler 2 puff inhalation BID PRN (Reason: wheezing, shortness of breath) Qty: 30.6 12RF Spiriva Respimat 1.25 mcg/actuation mist See Rx Instructions .ROUTE .COMPLEX Qty: 4 12RF Dose Instruction: INHALE TWO PUFFS BY MOUTH EVERY DAY Rx Instructions: INHALE TWO PUFFS BY MOUTH EVERY DAY lamotrigine 150 MG tablet 150 mg PO HS lamotrigine [Lamictal] 100 MG tablet 100 mg PO .QAM acetaminophen 500 mg tablet 1,000 mg PO Q8H PRN Qty: 90 0RF Rx Instructions: Take two tablets up to every 8 hours as needed for pain Discharge Instructions Additional Instructions: Surgery: Right hip endoscopy with iliotibial band release and trochanteric bursectomy 01/27/2025 Activity: Weightbearing as tolerated. May use crutches or walker as needed for a few days. Gradually advance to full range of motion and activity over the next few weeks. PT prescription has been sent to [facility] to start in about 3 weeks. Prescriptions: Aspirin 81 mg take 1 daily to prevent a blood clot for 2 weeks Naproxen 250 mg take 1-2 every 12 hours with a meal as needed for moderate pain Oxycodone 5 mg take 1-2 every 4-6 hours as needed for severe pain You may use [id number] Tylenol (acetaminophen) as needed for mild pain. These pain medications may be taken all at once or in different combinations as needed. Also, recommend Colace (docusate) as a stool softener as surgery and pain medicine cause constipation. You may try qpye-uxy-smcyvgh diphenhydramine (Benadryl) 25-50 mg nightly as a sleep aid Dressings: Leave dressing in place for 3 days. May then remove and leave open to air or cover incisions with Band-Aids. Leave the sticky Steri-Strips in place until they fall off or remove them after you shower. May shower after 5 days. Follow-up: 10-[address] Lainez You may take off the leg compression stockings this evening at home. You may also leave them on a few days longer if you have a history of leg swelling or edema. Let us know right away if you develop any redness, drainage, fevers, chest pain, or trouble breathing. Do not drink alcohol or drive for at least 24 hours after anesthesia. Please call the office during business hours with any questions or concerns. Stand Alone Forms: Portal Information Discharge Orders Discharge Orders: Discharge Order (Routine); Ordered 01/27/25 Ordered By: Agus Sarabia DS: Diagnosis Discharge Diagnosis (1) Iliotibial band syndrome of right side: Status: Acute (2) Trochanteric bursitis, right hip: Status: Acute
--- NOTE | 2025-01-27 07:14 | ROE_ITS ---
Operative Note Operative Note PRE-OP DIAGNOSIS: Right hip 1. Iliotibial band syndrome 2. Trochanteric bursitis POST-OP DIAGNOSIS: same PROCEDURE: Right hip endoscopic 1. Iiliotibial band release, CPT# 60416 2. Trochanteric bursectomy, CPT# 11283 SURGEON: Joaquin Lainez ANESTHESIA TYPE: Local By Surgeon and General LMA/ETT Refer to Anesthesia Record ESTIMATED BLOOD LOSS: 5 Patient was transported to: PACU Patient's condition: stable Indications: Please see complete medical record for details. Findings: Thickened and somewhat taut iliotibial band. Abundant inflamed trochanteric bursitis Procedure Description: In the operating room, general anesthesia was induced. The patient was positioned supine on the [facility] operating room table. All bony prominences were well-padded. Preoperative antibiotics were administered. The hip was prepped and draped in the usual sterile fashion. The correct patient, procedure, and side of the procedure were all verified prior to incision. 30 cc of 0.25% bupivacaine containing epinephrine was infiltrated about the subcutaneous tissues for the planned anterior lateral and distal anterolateral portals as well as deeply over the greater trochanter. A knife was used to incise the skin for the anterior lateral and distal anterolateral portals followed by blunt dissection subcutaneously. Under fluoroscopic guidance, a swi tching stick and arthroscope were inserted localizing the iliotibial band over the greater trochanter. Blunt dissection and the mechanical shaver were used to resect fat and overlying tissue about the center of the iliotibial band and carefully expose the anterior and posterior margins. Once there was adequate exposure of the IT band, the greater trochanter was again localized under fluoroscopic guidance with a spinal needle inserted through the skin down to bone. This central area was marked using the radiofrequency ablator. A [place] blade was brought in and used to create a 2 cm longitudinal incision in line with the IT band fibers as well as extending it in a cruciate fashion with 2 cm incisions anteriorly and posteriorly. The radiofrequency ablator was used to achieve hemostasis. The mechanical shaver was then used to debride the IT band released edges exposing the trochanteric bursa. The mechanical shaver was then used to excise the trochanteric bursa taking care to protect musculature about the margins of the greater trochanter as well as neurovascular structures especially posteriorly. There was excellent visualization of the vastus lateralis as well as gluteus medius confirming appropriate bursa excision. The hip was brought through range of motion including internal and external rotation and there was no impinging iliotibial band tissue or remaining pathologic bursa. The viewing and working portals were switched and appropriate IT band release, trochanteric bursa excision, and hemostasis confirmed. Suction was used to remove fluid from the endoscopic space. The portals were closed using 3-0 Monocryl in a buried fashion. Steri-Strips were applied over the incisions followed by Xeroform, 4 x 4 gauze, an ABD pad, and secured with tape. The patient awoke from anesthesia without complication and was transferred to the recovery room in a stable condition. Date of Procedure: 01/27/25
[2025-01-27] MEDS: Albuterol/Ipratropium 3 ML UPD VIAL UPD (07:19)
[2025-01-27] MEDS: ceFAZolin 2 GM/50 ML BAG IVPB (07:45)
[2025-01-27] MEDS: TRANEXAMIC ACID/SOD. CHL. 1,000 MG/100 ML BAG 600 MG IVPB (07:50)
[2025-01-27] MEDS: Bupivacaine 0.25% Pres-Free W/EPI 30 ML VIAL (08:16)
[2025-01-27] MEDS: EPINEPHrine 10 MG/10 ML ML (08:19)
--- NOTE | 2025-01-27 09:00 | DI.RAD_ITS ---
Exam(s) XR HIP RT IN OR EXAM: XR HIP RT IN OR CLINICAL HISTORY: IT BAND SYNDROME RIGHT HIP. TECHNIQUE: 2D and realtime digital imaging was performed. COMPARISON: CR XR HIP PELVIS ADULT BL from 12/07/2024 FINDINGS: Please see procedure note for details. Fluoro time: 4.5seconds RADIATION DOSE DELIVERED: khang Wolf=0.37 mGy
[2025-01-27] MEDS: fentaNYL 100 MCG/2 ML VIAL IVP (09:15)
--- NOTE | 2025-01-27 09:16 | W.ANESPOSTOP ---
Postoperative Evaluation Date, Time and Location Date Performed: 01/27/25 Time Performed: 09:16 Patient Location: PACU Vital Signs Most Recent Imported Vital Signs: Most Recent Vital Signs Temp Pulse Resp BP Pulse Ox 36.6 C 63 10 L 115/72 99 01/27/25 09:11 01/27/25 09:11 01/27/25 09:11 01/27/25 09:11 01/27/25 09:11 Pain Score Most Recent Pain Score: Most Recent Pain Score Pain Level 6 01/27/25 09:11 Assessment Mental Status: Awake (Alert & Oriented to Patient Baseline) Airway and Respiratory Function: Patent airway with normal (patient baseline) respiratory exam Cardiovascular Function: Hemodynamically Stable Hydration Status: Adequately Hydrated Nausea & Vomiting: No Nausea or Vomiting Pain: Pain is tolerable per patient Peripheral Nerve Block: Patient did not receive a nerve block
[2025-01-27] MEDS: ePHEDrine 25 MG/5 ML Syringe IVP (09:27)
[2025-01-27] MEDS: oxyCODONE 5 MG TAB PO (09:59)
== END 2025-01-27 10:56 | disposition home or self-care (01) ==
PROVIDERS: PCP Nurse Practitioner; Visit Provider Student in an Organized Health Care Education/Training Program
PROC: (CPT 29863; principal; 2025-01-27 07:30)
DX: M76.31 Iliotibial band syndrome, right leg (principal); M70.61 Trochanteric bursitis, right hip
CPT/HCPCS: 27305; 27062; 73501; J0690; J1100; J1885; J2003; J2371; J2405; J2704; J3010; J3475; J7620

== ENCOUNTER → 2025-02-09 09:51 | Outpatient (BNVA) | payer MEDICARE, SELFPAY | PROVIDERS: PCP Nurse Practitioner; Referring Provider Nurse Practitioner; Visit Provider Student in an Organized Health Care Education/Training Program | DX: Z47.89 Encounter for other orthopedic aftercare (principal); M70.61 Trochanteric bursitis, right hip; M76.31 Iliotibial band syndrome, right leg | CPT/HCPCS: 99024 ==

== ENCOUNTER 2025-02-21 00:56 | Outpatient (CLI) | payer MEDICARE, SELFPAY ==
--- NOTE | 2025-02-23 15:21 | W.PFT ---
Date of service: 02/21/25 Time of Service: 08:02 Pulmonary Function Test Result Indications: Sarcoidosis, asthma Impression 1. Good patient effort was noted. ATS standards for reproducibility were met. 2. Normal spirometry. 3. TLC was normal. No evidence of restrictive lung disease 4. DLCO was normal indicating normal alveolar gas exchange
== END 2025-02-21 00:57 | disposition home or self-care (01) ==
LOC: RT 00:56
PROVIDERS: PCP Nurse Practitioner; Visit Provider Internal Medicine Pulmonary Disease
DX: J45.50 Severe persistent asthma, uncomplicated (principal); D86.9 Sarcoidosis, unspecified
CPT/HCPCS: 94010; 94726; 94729

== ENCOUNTER → 2025-02-21 10:07 | Outpatient (CLI) | payer MEDICARE, SELFPAY ==
--- NOTE | 2025-02-21 10:00 | DI.RAD_ITS ---
Exam(s) XR CHEST 2V PA LATERAL EXAM: XR CHEST 2V PA LATERAL CLINICAL HISTORY: cough, R05 TECHNIQUE: 2D digital imaging was performed of the chest. Two images were obtained. PA and lateral views were obtained. COMPARISON: CR XR CHEST 2V PA LATERAL from 10/09/2021 CR XR CHEST 2V PA LATERAL from 01/18/2025 FINDINGS: MEDIASTINUM: Normal. HEART: Normal. PULMONARY VASCULATURE: Normal. LUNGS: Clear. PLEURAL SPACE: No pleural effusion or pneumothorax. BONE:Within normal limits for the patient's age. OTHER FINDINGS:Normal. IMPRESSION: No acute pulmonary findings. DATA REPOSITORY: RADIATION DOSE DELIVERED:
== END ==
LOC: DI 10:07
PROVIDERS: PCP Nurse Practitioner; Visit Provider Internal Medicine Pulmonary Disease
DX: R05.9 Cough, unspecified (principal)
CPT/HCPCS: 71046